=== PATIENT | female | born 1985 | race Caucasian/White ===

== ENCOUNTER 2018-12-02 09:42 | Inpatient (IN) | payer MEDICAID, OTHER ==
--- NOTE | 2018-12-02 10:42 | ED ---
Psych HPI - General Source: patient, police, EMS, RN notes reviewed Mode of arrival: EMS Limitations: no limitations <Sebastián Daniel - Last Filed: 12/02/18 14:29> <Ron Tobar - Last Filed: 12/02/18 14:37> - General Chief Complaint: Psychiatric Symptoms Stated Complaint: mental health Time Seen by Provider: 12/02/18 09:50 - History of Present Illness Initial Comments: This is a 33-year-old female presents emergency Department with police and EMS for psychiatric evaluation. Patient reports that she has been stalked and states that people are after and she is trying to get away. Patient is found to be very paranoid and delusional. Patient reportedly was crawling an addict, went to a neighbor's house and locked herself in the room and jumped out the window into a tree climbing down. Patient complains of mild right hip pain, left foot pain. She denies any head injury no loss conscious. Police and EMS states that she her behavior is very irrational. (Sebastián Daniel) - Related Data Home Medications Medication Instructions Recorded Confirmed Acetaminophen Tab [Tylenol] 500 mg PO DAILY 12/02/18 12/02/18 Ibuprofen [Advil] 200 mg PO DAILY PRN 12/02/18 12/02/18 Loratadine [Claritin] 10 mg PO DAILY 12/02/18 12/02/18 Allergies Allergy/AdvReac Type Severity Reaction Status Date / Time iodine Allergy Unknown Verified 12/02/18 10:33 latex Allergy Unknown Verified 12/02/18 10:33 minocycline Allergy Unknown Verified 12/02/18 10:33 polymyxin B [From Polytrim] Allergy Unknown Verified 12/02/18 10:33 shellfish derived [Shellfish] Allergy Unknown Verified 12/02/18 10:33 [place] Seed Allergy Unknown Verified 12/02/18 10:33 trimethoprim [From Polytrim] Allergy Unknown Verified 12/02/18 10:33 Review of Systems ROS Other: All systems not noted in ROS Statement are negative. <Sebastián Daniel - Last Filed: 12/02/18 14:29> ROS Other: All systems not noted in ROS Statement are negative. <Ron Tobar - Last Filed: 12/02/18 14:37> ROS Statement: Those systems with pertinent positive or pertinent negative responses have been documented in the HPI. Past Medical History Past Medical History: No Reported History, Unable to Obtain History of Any Multi-Drug Resistant Organisms: None Reported Past Surgical History: Unable to Obtain Smoking Status: Never smoker Past Alcohol Use History: None Reported Past Drug Use History: None Reported <Sebastián Daniel - Last Filed: 12/02/18 14:29> General Exam Limitations: no limitations General appearance: alert, in no apparent distress Head exam: Present: atraumatic, normocephalic, normal inspection Eye exam: Present: normal appearance, PERRL, EOMI. Absent: scleral icterus, conjunctival injection, periorbital swelling ENT exam: Present: normal exam, normal oropharynx, mucous membranes moist, TM's normal bilaterally Neck exam: Present: normal inspection, full ROM. Absent: tenderness, meningismus, lymphadenopathy Respiratory exam: Present: normal lung sounds bilaterally. Absent: respiratory distress, wheezes, rales, rhonchi, stridor Cardiovascular Exam: Present: regular rate, normal rhythm, normal heart sounds. Absent: systolic murmur, diastolic murmur, rubs, gallop, clicks GI/Abdominal exam: Present: soft, normal bowel sounds. Absent: distended, tenderness, guarding, rebound, rigid Extremities exam: Present: other (Abrasions noted of the right hand and lower extremities with no tenderness to the upper extremities, left foot there is diffuse tenderness tenderness the right hip with no shortening or rotation obvious deformities) Back exam: Present: full ROM. Absent: tenderness Neurological exam: Present: alert, oriented X3, CN II-XII intact. Absent: motor sensory deficit Psychiatric exam: Present: anxious Skin exam: Present: warm, dry, intact, normal color. Absent: rash <Sebastián Daniel - Last Filed: 12/02/18 14:29> Course <Ron Tobar - Last Filed: 12/02/18 14:37> Vital Signs 12/02/18 09:50 Temperature 97.8 F Pulse Rate 78 Respiratory 18 Rate Blood Pressure 133/90 O2 Sat by Pulse 98 Oximetry - Reevaluation(s) Reevaluation #1: 12/02/18 14:31 I did personally evaluate patient case a clinical certification was filled out by me. Patient be admitted for inpatient treatment (Ron Tobar) Medical Decision Making <Sebastián Daniel - Last Filed: 12/02/18 14:29> - Medical Decision Making 33-year-old female presented for psychiatric evaluation. Patient has delusional, paranoid than acute psychosis. Patient will be admitted. Patient was given Geodon secondary to her behavior. Patient is petition and had clinical CERT done (Sebastián Daniel) - Lab Data Lab Results 12/02/18 12/02/18 Range/Units 11:52 12:00 Urine Color Yellow Urine Appearance Clear (Clear) Urine pH 6.5 (5.0-8.0) Ur Specific [place] 1.009 (1.001-1.035) Urine Protein 1+ H (Negative) Urine Glucose (UA) Negative (Negative) Urine Ketones 1+ H (Negative) Urine Blood Negative (Negative) Urine Nitrite Negative (Negative) Urine Bilirubin Negative (Negative) Urine Urobilinogen <2.0 (<2.0) mg/dL Ur Leukocyte Esterase Negative (Negative) Urine RBC 1 (0-5) /hpf Urine WBC 1 (0-5) /hpf Ur Squamous Epith Cells <1 (0-4) /hpf Urine Bacteria Rare H (None) /hpf Urine Mucus Rare H (None) /hpf Urine HCG, Qual Not Detected (Not Detectd) Urine Opiates Screen Not Detected (NotDetected) Ur Oxycodone Screen Not Detected (NotDetected) Urine Methadone Screen Not Detected (NotDetected) Ur Propoxyphene Screen Not Detected (NotDetected) Ur Barbiturates Screen Not Detected (NotDetected) U Tricyclic Antidepress Not Detected (NotDetected) Ur Phencyclidine Scrn Not Detected (NotDetected) Ur Amphetamines Screen Not Detected (NotDetected) U Methamphetamines Scrn Not Detected (NotDetected) U Benzodiazepines Scrn Not Detected (NotDetected) Urine Cocaine Screen Not Detected (NotDetected) U Marijuana (THC) Screen Not Detected (NotDetected) Disposition <Sebastián Daniel - Last Filed: 12/02/18 14:29> <Ron Tobar - Last Filed: 12/02/18 14:37> Clinical Impression: Acute psychosis, Paranoid Disposition: TRANSFER TO PSYCH HOSP/UNIT Condition: Stable Referrals: Miriam Esquivel MD [Primary Care Provider] - 1-2 days
--- NOTE | 2018-12-02 10:49 | XR ---
EXAMINATION TYPE: XR pelvis AP view , ONE VIEW DATE OF EXAM ORDERED: 12/02/2018 HISTORY: Pain. COMPARISON: None. FINDINGS: Osseous structures about the pelvis are normal. There is partial sacralization of the L5 v ertebral body. No fracture or dislocation is seen. Both hip joints are maintained. IMPRESSION: NO ACUTE OSSEOUS LESION.
--- NOTE | 2018-12-02 10:49 | XR ---
EXAMINATION TYPE: XR lumbar spine 2 or 3V , 3 VIEWS DATE OF EXAM ORDERED: 12/02/2018 HISTORY: Pain. COMPARISON: None. FINDINGS: There is a mild levoscoliosis of the thoracolumbar junction. This may, in part, BE seconda ry to positioning. Vertebral body height and alignment are maintained. There is no significant evidence of spondylolysis or spondylolisthesis. The pedicles are intact. IMPRESSION: NO ACUTE OSSEOUS LESION.
--- NOTE | 2018-12-02 10:51 | XR ---
EXAMINATION TYPE: XR foot complete LT , 3 VIEWS DATE OF EXAM ORDERED: 12/02/2018 HISTORY: Pain. COMPARISON: None. FINDINGS: There is sclerosis along the medial aspect of the distal phalanx of the great toe. This is of questionable etiology. No fracture, dislocation or ankle joint effusion is seen. IMPRESSION: 1. NO ACUTE OSSEOUS LESION. 2. SCLEROSIS ALONG THE MEDIAL ASPECT OF THE DISTAL PHALANX OF THE LEFT GREAT TOE MAY REFLECT A PROMIN ENT BONE IS[place].
[2018-12-02] MEDS ORDERED: ZIPRASIDONE 20 MG VIAL IM STA (12:17)
[2018-12-02 12:19] LABS: Amphetamine Screen,Urine Not Detected (NotDetected); Barbiturate Screen,Urine Not Detected (NotDetected); Benzodiazepines Screen,Urine Not Detected (NotDetected); Cocaine Screen,Urine Not Detected (NotDetected); Methadone Screen, Urine Not Detected (NotDetected); Opiate Screen,Urine Not Detected (NotDetected); Oxycodone Screen, Urine Not Detected (NotDetected); Phencyclidine Screen,Urine Not Detected (NotDetected); Tricyclic Antidepressant,Urine Not Detected (NotDetected); Urn Cannabinoid Scrn Not Detected (NotDetected)
[2018-12-02 12:20] LABS: Appearance,Urine Clear (Clear); Bacteria,Urine Rare /hpf; Bilirubin,Urine Negative (Negative); Blood,Urine Negative (Negative); Color,Urine Yellow; Glucose,Urine (UA) Negative (Negative); Ketones,Urine 1+ (Negative); Leukocyte Esterase,Urine Negative (Negative); Mucus,Urine Rare /hpf; Nitrite,Urine Negative (Negative); PH, Urine 6.5 (5.0-8.0); Protein,Urine 1+ (Negative); RBC,Urine 1 /hpf (0-5); Specific Gravity,Urine 1.009 (1.001-1.035); Squamous Epithelial Cell,Urine <1 /hpf (0-4); Urobilinogen,Urine <2.0 mg/dL (<2.0); WBC,Urine 1 /hpf (0-5)
[2018-12-02] MEDS ORDERED: MAGNESIUM HYDROXIDE 2,400 MG/10 ML CUP PO PRN (15:35)
[2018-12-02] MEDS ORDERED: MAG HYDROX/AL HYDROX/SIMETH 30 ML CUP PO PRN (15:35)
[2018-12-02] MEDS ORDERED: ZIPRASIDONE 20 MG VIAL IM PRN (15:52)
--- NOTE | 2018-12-02 16:30 | P.CONS ---
History of Present Illness - Reason for Consult Consult date: 12/02/18 - History of Present Illness Patient is a 33-year-old female known PMH who presented to the ED under police custody for psychiatric evaluation. The patient had apparently been acting strangely and had been paranoid. She had reportedly broke into someone's house and had barricaded herself in their attic. She had been broke out of the attic via a window and fell down a nearby tree. The patient was concerned that there were groups of people stalking her. The patient was seen and examined at the mental health unit. She repeatedly mentioned being concern for safety due to unknown people attempting to stock. She also endorsed left foot and right hip pain due to her fall from the tree. She however denied any head trauma or loss of consciousness. She further denied any pain in the chest, shortness of breath, nausea, vomiting, fever, chills, or abdominal pain. She endorsed a long-standing history of exercise-induced asthma for which she uses an albuterol inhaler as needed. She otherwise denied any additional conditions or taking any additional medications. The patient underwent an extensive evaluation in the ED with a left foot x-ray which revealed no fracture or dislocation. A lumbar spinal x-ray was unremarkable. A pelvic x-ray also revealed no fracture or dislocation. Laboratory evaluation is currently pending with U tox negative. Review of Systems Pertinent positives and negatives as discussed in HPI, a complete review of systems was performed and all other systems are negative. Past Medical History Past Medical History: No Reported History, Unable to Obtain History of Any Multi-Drug Resistant Organisms: None Reported Past Surgical History: Unable to Obtain Smoking Status: Never smoker Past Alcohol Use History: None Reported Past Drug Use History: None Reported Medications and Allergies Home Medications Medication Instructions Recorded Confirmed Type Acetaminophen Tab [Tylenol] 500 mg PO DAILY 12/02/18 12/02/18 History Ibuprofen [Advil] 200 mg PO DAILY PRN 12/02/18 12/02/18 History Loratadine [Claritin] 10 mg PO DAILY 12/02/18 12/02/18 History Allergies Allergy/AdvReac Type Severity Reaction Status Date / Time iodine Allergy Unknown Verified 12/02/18 10:33 latex Allergy Unknown Verified 12/02/18 10:33 minocycline Allergy Unknown Verified 12/02/18 10:33 polymyxin B [From Polytrim] Allergy Unknown Verified 12/02/18 10:33 shellfish derived [Shellfish] Allergy Unknown Verified 12/02/18 10:33 [place] Seed Allergy Unknown Verified 12/02/18 10:33 trimethoprim [From Polytrim] Allergy Unknown Verified 12/02/18 10:33 Physical Exam Vitals: Vital Signs Temp Pulse Pulse Resp BP BP Pulse Ox 12/02/18 16:12 98.0 F 72 16 132/78 100 12/02/18 09:50 97.8 F 78 18 133/90 98 Intake and Output 12/02/18 12/02/18 12/02/18 06:59 14:59 22:59 Other: Weight 65.771 kg General: non toxic, no distress, appears at stated age, normal weight Derm: Bruises on her bilateral knees and fingers, bruising of her left foot and ankle, warm, dry Head: atraumatic, normocephalic, symmetric Eyes: EOMI, no lid lag, anicteric sclera, pupils equal round reactive to light ENT: Nose and ears atraumatic, no thrush, no pharyngeal erythema Neck: No thyromegaly, no cervical lymphadenopathy, trachea midline, supple Mouth: no lip lesion, mucus membranes moist Cardiovascular: S1S2 reg, no murmur, positive posterior tibial pulse bilateral, no edema, capillary refill less than 2 seconds Lungs: CTA bilateral, no rhonchi, no rales , no accessory muscle use Abdominal: soft, nontender to palpation, no guarding, no appreciable organomegaly, normal bowel sounds Ext: no gross muscle atrophy, muscle strength 5 out of 5 in all 4 extremities grossly, no contractures, Neuro: CN II-XI grossly intact, light touch intact all 4 extremities, finger to nose within normal limits, Psych: Alert, oriented, paranoid Results Labs: Abnormal Lab Results - Last 24 Hours (Table) 12/02/18 Range/Units 11:52 Urine Protein 1+ H (Negative) Urine Ketones 1+ H (Negative) Urine Bacteria Rare H (None) /hpf Urine Mucus Rare H (None) /hpf Assessment and Plan Plan: Psychosis -As per psychiatry Left foot and right hip pain -Likely secondary to falls -X-rays reviewed Thank you for allowing us to participate in the care of this patient. We will follow peripherally. Do not hesitate to contact us with questions. Someone can be reached from the [facility] hospitalist group at all hours of the day at [phone].
[2018-12-03] MEDS: LORazepam 1 MG TAB PO PRN (00:01)
[2018-12-03] MEDS: HALOPERIDOL LACTATE 5 MG/ML 1 ML VIAL IM PRN (01:09)
[2018-12-03] MEDS: LORazepam 2 MG/ML INJ IM PRN (01:09)
--- NOTE | 2018-12-03 07:50 | P.HP ---
Psychiatric H&P - . History & Physical: Allergies Allergy/AdvReac Type Severity Reaction Status Date / Time iodine Allergy Unknown Verified 12/02/18 10:33 latex Allergy Unknown Verified 12/02/18 10:33 minocycline Allergy Unknown Verified 12/02/18 10:33 polymyxin B [From Polytrim] Allergy Unknown Verified 12/02/18 10:33 shellfish derived [Shellfish] Allergy Unknown Verified 12/02/18 10:33 [place] Seed Allergy Unknown Verified 12/02/18 10:33 trimethoprim [From Polytrim] Allergy Unknown Verified 12/02/18 10:33 Vital Signs Temp 98.0 F 12/02/18 16:12 Pulse 72 12/02/18 16:12 Resp 16 12/02/18 16:12 BP 132/78 12/02/18 16:12 Pulse Ox 100 12/02/18 16:12 Intake & Output 12/02/18 12/03/18 12/03/18 18:59 06:59 18:59 Weight 65.771 kg Laboratory Last Values Urine Color Yellow 12/02/18 11:52 Urine Appearance Clear (Clear) 12/02/18 11:52 Urine pH 6.5 (5.0-8.0) 12/02/18 11:52 Ur Specific [place] 1.009 (1.001-1.035) 12/02/18 11:52 Urine Protein 1+ (Negative) H 12/02/18 11:52 Urine Glucose (UA) Negative (Negative) 12/02/18 11:52 Urine Ketones 1+ (Negative) H 12/02/18 11:52 Urine Blood Negative (Negative) 12/02/18 11:52 Urine Nitrite Negative (Negative) 12/02/18 11:52 Urine Bilirubin Negative (Negative) 12/02/18 11:52 Urine Urobilinogen <2.0 mg/dL (<2.0) 12/02/18 11:52 Ur Leukocyte Esterase Negative (Negative) 12/02/18 11:52 Urine RBC 1 /hpf (0-5) 12/02/18 11:52 Urine WBC 1 /hpf (0-5) 12/02/18 11:52 Ur Squamous Epith Cells <1 /hpf (0-4) 12/02/18 11:52 Urine Bacteria Rare /hpf (None) H 12/02/18 11:52 Urine Mucus Rare /hpf (None) H 12/02/18 11:52 Urine HCG, Qual Not Detected (Not Detectd) 12/02/18 12:00 Urine Opiates Screen Not Detected (NotDetected) 12/02/18 11:52 Ur Oxycodone Screen Not Detected (NotDetected) 12/02/18 11:52 Urine Methadone Screen Not Detected (NotDetected) 12/02/18 11:52 Ur Propoxyphene Screen Not Detected (NotDetected) 12/02/18 11:52 Ur Barbiturates Screen Not Detected (NotDetected) 12/02/18 11:52 U Tricyclic Antidepress Not Detected (NotDetected) 12/02/18 11:52 Ur Phencyclidine Scrn Not Detected (NotDetected) 12/02/18 11:52 Ur Amphetamines Screen Not Detected (NotDetected) 12/02/18 11:52 U Methamphetamines Scrn Not Detected (NotDetected) 12/02/18 11:52 U Benzodiazepines Scrn Not Detected (NotDetected) 12/02/18 11:52 Urine Cocaine Screen Not Detected (NotDetected) 12/02/18 11:52 U Marijuana (THC) Screen Not Detected (NotDetected) 12/02/18 11:52 12/03/18 07:39 IDENTIFYING DATA: This patient is a 33-year-old single female who was admitted to the mental health unit with acute symptoms of psychosis. HPI: The patient presents with a petition completed by a police academy instructor stating "everyone is out to kill her. Someone is chasing her because her grandpa killed Hitler and entered a home and jumped out a second story window." The patient was found in her room she has a one-to-one sitter in place as she has continually tried to elope from the mental health unit. She describes a variety of delusional thoughts. She states that she is being stalked by a man named Lyle Stockton. She claims that he is an older man was a billionaire and is trying to kill her. She states that her grandparents killed Hua and Lyle Stockton wants revenge because Hua was his grandfather. She states that he has hired a group of individuals to stalk her. She claims that he has put chips in her head and in her ears. As a result Bill can directly communicate with her and in a nonstop fashion tells her he will kill her. She states that they are using directed energy weapons against her while she sleeps. She describes this weapon is heating up the bed or heating the wall so that she is uncomfortable the entire time. She reports that she has called the police and the FBI numerous times to report this. She also states that he is involved in a methamphetamine drug ring. She indicates that she has had these symptoms for approximately 4 years. She states her sleep and appetite have been poor energy levels normal she endorses no crying spells. She feels depressed because of the situation she is in she has resultant anxiety. She reports no suicidal ideation intent or plan she states she is quite fearful of . She reports no homicidal ideation intent or plan. She endorses no visual hallucinations. She indicates that she feels unsafe everywhere. She states that she feels traumatized that she has received injectable medication. She received an injection of Geodon last evening in the ER and she received an injection of Haldol at approximately 1 AM this morning. PAST PSYCHIATRIC HISTORY: He reports no prior inpatient psychiatric care, no history of suicide attempts, no history of outpatient psychiatric care. She reports she's been on no psychotropic medications in the past and she will never take them. PMH: Recent fall details unknown ALLERGIES: Iodine, minocycline, polymyxin, Bactrim MEDICATIONS: None CHEMICAL DEPENDENCY HISTORY: Ports using alcohol once a year she reports no use of marijuana or illicit drugs. She states she's never been placed in residential treatment for chemical dependency FAMILY PSYCHIATRIC HISTORY: She states her mother and father known to have depression and anxiety, no suicides in the family FAMILY CHEMICAL DEPENDENCY HISTORY: None reported SOCIAL HISTORY: The patient is 33 years old she is single she has no children she resides with her mother. She states overall the relationship she has with her mother is good. 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 She graduated the [employer] with a degree in [place] she was accepted to medical school at [place] it is uncertain how far she participated in that curriculum she has 2 brothers one sister. No reported history of arrests or other legal issues. No reported history of abuse other than information she provides is part of her psychosis. MENTAL STATUS EXAM: The patient is a tall thin female appearing her stated age. She is dressed in hospital gowns and is covered with a hospital sheet and blanket. She has a disheveled appearance hygiene is adequate. She is tired appearing but not lethargic. She states that she is very fearful and overwhelmed. She describes auditory hallucinations and describes acute paranoid persecutory thoughts. Her symptoms of psychosis impair her normal psychosocial functioning. She is reporting no suicidal or homicidal ideation. She demonstrates some disorganization of thought process at times but can answer questions in a linear fashion at other times. She demonstrates no verbal or physical aggressiveness. Insight and judgment are poor. She is delusional at this time is trying to escape the mental health unit and is refusing medication. She is oriented to person place the date as December 02. She is able to easily name the days of the week backwards. She demonstrated no physical aggressiveness during our session. She demonstrates no involuntary repetitive movements. STRENGTHS/WEAKNESSES: Strengths: Housing support from family weaknesses acute symptoms of psychosis INTELLECTUAL FUNCTIONING: Above average IMPRESSIONS: [] 1. Psychosis unspecified, rule out schizophrenia PLAN: The patient has been admitted to the mental health unit on a petition and clinical certificate. She clearly is acutely psychotic experiencing paranoid and persecutory delusions. Several times she has tried to elope from the mental health unit and she informs me that she will never taken medication. Because of her acute dysfunction and lack of insight I have completed a second clinical certificate. She has been seen by internal medicine for routine history and physical exam. Social work will meet with the patient to complete a psychosoc ial assessment. We will monitor her for safety. Encourage her to participate in the therapeutic milieu. We will watch her by mouth intake. We will involve family in treatment and discharge planning as she will allow. For now we have a Haldol when necessary available for acute agitation/psychosis.
[2018-12-03] MEDS: LORATADINE 10 MG TAB PO SCH (09:45)
[2018-12-03 09:59] LABS: ALT 35 U/L (9-52); AST 45 U/L (14-36); African American GFR (CKD) >90 (>60 ml/min/1.73 sqM); Albumin 4.2 g/dL (3.5-5.0); Alkaline Phosphatase 38 U/L (38-126); Anion Gap 8 mmol/L; Basophils % (A) 0 %; Blood Urea Nitrogen 5 mg/dL (7-17); Calcium 9.3 mg/dL (8.4-10.2); Carbon Dioxide 27 mmol/L (22-30); Chloride 102 mmol/L (98-107); Cholesterol 140 mg/dL (<200); Eosinophils % (A) 0 %; Glucose 113 mg/dL (74-99); HCT 39.4 % (34.0-46.0); HDL Cholesterol 53 mg/dL (40-60); HGB 13.2 gm/dL (11.4-16.0); LDL Cholesterol,Calculated 77 mg/dL (0-99); Lymphocytes # (A) 0.6 k/uL (1.0-4.8); Lymphocytes % (A) 6 %; MCH 30.3 pg (25.0-35.0); MCHC 33.7 g/dL (31.0-37.0); MCV 89.9 fL (80.0-100.0); Mean Platelet Volume 7.6; Monocytes # (A) 0.9 k/uL (0-1.0); Monocytes % (A) 9 %; Neutrophils # (A) 8.2 k/uL (1.3-7.7); Neutrophils % (A) 83 %; Platelet Count 197 k/uL (150-450); Potassium 3.9 mmol/L (3.5-5.1); RBC 4.38 m/uL (3.80-5.40); RDW 13.7 % (11.5-15.5); Sodium 137 mmol/L (137-145); Total Bilirubin 1.2 mg/dL (0.2-1.3); Total Protein 6.7 g/dL (6.3-8.2); Triglycerides 51 mg/dL (<150)
[2018-12-03 10:33] LABS: Glucose,Whole Blood 108 mg/dL (75-99)
[2018-12-03 17:33] LABS: Appearance,Urine Clear (Clear); Bacteria,Urine Rare /hpf; Bilirubin,Urine Negative (Negative); Blood,Urine Trace (Negative); Color,Urine Light Yellow; Glucose,Urine (UA) Negative (Negative); Ketones,Urine Negative (Negative); Leukocyte Esterase,Urine Negative (Negative); Mucus,Urine Rare /hpf; Nitrite,Urine Negative (Negative); PH, Urine 6.5 (5.0-8.0); Protein,Urine Negative (Negative); RBC,Urine 1 /hpf (0-5); Specific Gravity,Urine 1.003 (1.001-1.035); Urobilinogen,Urine <2.0 mg/dL (<2.0); WBC,Urine <1 /hpf (0-5)
[2018-12-04] MEDS: ACETAMINOPHEN TAB 325 MG TAB PO PRN (08:22)
[2018-12-04] MEDS: LORATADINE 10 MG TAB PO SCH (08:48)
[2018-12-04 09:57] LABS: Urine Alcohol Negative (Negative); Urine Barbiturate Negative (Negative); Urine Cocaine Negative (Negative); Urine Methadone Negative (Negative); Urine Opiates Negative (Negative); Urine Phencyclidine Negative (Negative)
[2018-12-04] MEDS ORDERED: IBUPROFEN 600 MG TAB PO PRN (10:18)
[2018-12-04 10:50] LABS: Hemoglobin A1C 5.2 % (4.0-6.0)
--- NOTE | 2018-12-04 11:22 | P.PN ---
Progress Note - Text Interval history: The patient is found sleeping in the general hallway sleeping on the floor covered with a blanket. She had moved a chair in front of her. She states that she was sleeping there as she felt unsafe in her room and she wanted to be in a general area underneath a camera. She reluctantly follows me to a conference room to speak. After asking her a few questions she insisted that I get a specific female nurse to sit with us. After doing so she only tolerated the interview for a few more minutes. She continues to state that she is being followed and is in danger. She states that contracts are being put out to have her murdered. She states before she came in she fell off of the latter trying to escape danger. The x-ray reports of her foot back and pelvis were reviewed and those were negative for any acute process. She has been seen by internal medicine as well. She continues to refuse the use of any psychotropic medication orally. An attempt was made to describe the legal process that will ensue but she was not cooperative with that discussion. It appears she did receive a Haldol and Ativan injection earlier this morning. Mental status exam: The patient is a tall thin female appearing her stated age. Hygiene and grooming are impaired. She is dressed in her own clothing she is wearing a hospital blanket over top. Eye contact is intermittent. She spontaneously describes several delusional thoughts that are paranoid and persecutory in nature. During the session she indicates she does not want me involved in her care any longer. She demonstrates poor insight and judgment. She has a distraught affect throughout the session. She demonstrates no verbal or physical aggressiveness. She appears to have some psychomotor slowing which is likely due to the Haldol injection she received. She reports no thoughts of wanting to hurt herself or others. Plan: The patient presents with acute symptoms of psychosis which are unchanged. She is refusing antipsychotic medication. We will await the results of the deferral conference and possibly court hearing if necessary. Vital signs reviewed. We will monitor her by mouth intake. We will try to provide reality orientation when possible. She has received some Haldol injections at this point when she becomes more agitated so perhaps this will help reduce some of her psychosis.
[2018-12-04] MEDS: HALOPERIDOL LACTATE 5 MG/ML 1 ML VIAL IM PRN (15:27)
[2018-12-04] MEDS: LORazepam 2 MG/ML INJ IM PRN (15:27)
--- NOTE | 2018-12-04 17:13 | CT ---
EXAMINATION TYPE: CT brain aidee garner con DATE OF EXAM: 12/04/2018 COMPARISON: None HISTORY: Possible fall from attic of house. CT DLP: 1282.3 mGycm Automated exposure control for dose reduction was used. TECHNIQUE: CT scan of the head and cervical spine are performed without contrast. FINDINGS: There is no acute intracranial hemorrhage, mass effect, or midline shift identified. The ventricles and sulci are within normal limits in size. The globes are intact and the visualized sin uses are clear. Cervical spine is visualized in its entirety from C1 through upper thoracic levels and demonstrates s atisfactory alignment without evidence of acute fracture or dislocation. Prevertebral soft tissue ap pears within normal limits. The C1-C2 articulation is unremarkable. IMPRESSION: 1. There is no acute fracture or dislocation evident in the cervical spine. 2. No acute intracranial hemorrhage, mass effect, or midline shift is seen.
[2018-12-05] MEDS: ACETAMINOPHEN TAB 325 MG TAB PO PRN ×3 (07:52→17:49)
[2018-12-05] MEDS: LORATADINE 10 MG TAB PO SCH (08:48)
--- NOTE | 2018-12-05 10:11 | P.PN ---
Progress Note - Text Interval history: The patient is found on the hallway floor resting. She follows me to an interview room. Again she requested a female nurse be present during our interaction. She indicates she wants a transferred to [facility] as that hospitals closer to her primary care physician. She continues to feel that she is not being appropriately evaluated. She now has undergone an x-ray of her foot her pelvis and lumbar back and most recently a computed tomography scan of her brain and neck. All of these imaging studies revealed no acute process. This information was shared with the patient. She continues to describe symptoms of acute paranoia and persecution. She feels that she is in danger. The patient did sign a release of information I did speak with the patient's mother Ariadna. Her mother states that the patient did have an episode in her 20s where she appeared manic after taking Celexa. She states over the last 2 years she has been more fearful. She has struggle with anxiety to the point of not maintaining full-time employment. Her mother recognizes that the patient has had some paranoid thoughts over the recent past. They support her hospitalization and receiving medication treatment. She had questions regarding the court process which were addressed. The patient tolerated the interview only for a few moments. She got up and left the room after stating several times she wanted to be transferred. She did receive an injection yesterday prior to going for her head CT. Mental status exam: The patient is a thin female appearing her stated age. She is dressed in her own clothing she has a disheveled appearance. Hygiene is impaired. She was found lying on the floor in the hallway underneath the security camera she was laying on sheets. She has a chair next to her and she lays on the ground. Eye contact is poor. She has some spontaneous speech. She reports ongoing paranoid and persecutory thoughts. She continues to feel that she is being stalked and is in danger. She continues to feel that Lyle Flores that is trying to murder her. Insight and judgment are poor. She will not tolerate a conversation involving the use of oral antipsychotic medication. She demonstrated no verbal or physical aggressiveness. Plan: Ongoing symptoms of acute psychosis. The patient is refusing an oral antipsychotic medication. She has a hearing scheduled this Tuesday morning. Assuming we obtain a treatment order we'll initiate antipsychotic medication. Vital signs reviewed.
[2018-12-05] MEDS ORDERED: BACITRACIN OINT 1 EACH PACKET TOPICAL ONE ×2 (12:21→18:51)
[2018-12-06] MEDS: LORATADINE 10 MG TAB PO SCH (08:38)
[2018-12-06] MEDS: ACETAMINOPHEN TAB 325 MG TAB PO PRN ×3 (08:39→17:25)
--- NOTE | 2018-12-06 11:14 | P.PN ---
Progress Note - Text Interval history: The patient's is found at the [facility]. She asked to meet with both myself and the other psychiatrist. She indicates she does not feel safe meeting with me even with female nursing staff present as we have been doing each day. She demands to change psychiatrists as she feels I'm inadequately addressing her needs. Efforts were made to have her sit in an interview room with female nursing staff present but she refused and walked away from the desk. Staff report that she is participating in group she continues to verbalize a psychotic thought content. She has been sleeping in the quiet room as she feels safer in there since there is a camera. I received a written communication from the patient's parents stating "dear or as immediate family of Sari Harris we support [facility] psychiatric team's request to continue treatment of her daughter beyond the 72 hour assessment period. We are concerned for her mental health safety and well-being following last weekends manic episode and 911 emergency call. Yes we have encouraged Sari to seek treatment over the past 2 years with limited success. An yes we are very concerned that she receives further mental health treatment to aid her recovery. Your actions and continued support are greatly appreciated." Mental status exam: The patient is a tall thin female appearing her stated age. She is dressed in her own clothing she has a disheveled appearance. She has intermittent eye contact affect is bland. She has spontaneous speech she is verbose. She is intrusive in conversation and does not receive input well. She indicates she is unsafe here on this mental health unit she feels unsafe with me. She describes a variety of paranoid and persecutory thoughts. Insight and judgment are poor. Continues to refuse any psychotropic medication to address her obvious symptoms of psychosis. She demonstrated no verbal or physical aggressiveness. Plan: The patient remains acutely psychotic. She requires antipsychotic medication however she is refusing that treatment. We are awaiting her hearing to obtain a treatment order. Vital signs reviewed. We will continue to monitor her for safety. We will provide reality orientation when possible.
[2018-12-06] MEDS: LORazepam 1 MG TAB PO PRN (21:23)
[2018-12-06] MEDS: HALOPERIDOL LACTATE 5 MG/ML 1 ML VIAL IM PRN (21:23)
[2018-12-07] MEDS: ACETAMINOPHEN TAB 325 MG TAB PO PRN ×3 (07:48→17:06)
[2018-12-07] MEDS: LORATADINE 10 MG TAB PO SCH (07:48)
[2018-12-07] MEDS ORDERED: BACITRACIN OINT 1 EACH PACKET TOPICAL ONE (10:07)
[2018-12-07] MEDS: BACITRACIN 500 UNIT/GM OINT 28.4 GM TUBE TOPICAL SCH ×2 (10:09→22:05)
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
[2018-12-08] MEDS: ACETAMINOPHEN TAB 325 MG TAB PO PRN ×3 (02:31→12:20)
--- NOTE | 2018-12-08 08:32 | P.PN ---
Progress Note - Text Interval history: The patient is found in the [facility]. She refuses to speak with me in an interview room with female nursing staff present. she continues to state "I will see you in court, I'm defending myself". She indicates that she slept last night however staff reported she slept 3 hours. Social work notes reviewed. The patient continues to make delusional statements to staff. She indicated that she felt food and water were poisoned here with sedatives. She states that she is calling the FBI to report us. She demands a transferred to [facility] to her primary care physician. Mental status exam: The patient is seated in [facility] underneath a security camera. She stressor own clothing hygiene grooming adequate. Speech is spontaneous fluent. She is uncooperative when asked to participate in an interview this morning even with female staff present. She refuses to answer any other questions than noted above. Insight and judgment remain poor. She is demonstrating no physical aggressiveness. She is demonstrating no involuntary repetitive movements. She is in no physical distress. She maintains a mildly irritable affect this morning during our brief interaction. Impression/plan: The patient remains acutely psychotic, she has a hearing this morning. If we are able to obtain a treatment order we will begin prescribing an oral antipsychotic. We will consider our choices but she would most likely benefit from 1 that has an injectable Depo form as she is likely to not comply w ith oral medication outside of the hospital. Vital signs reviewed. We will continue to provide reality orientation when possible.
[2018-12-08] MEDS ORDERED: ZIPRASIDONE 20 MG VIAL IM PRN (11:00)
[2018-12-08] MEDS: LORATADINE 10 MG TAB PO SCH (11:22)
[2018-12-08] MEDS: BACITRACIN 500 UNIT/GM OINT 28.4 GM TUBE TOPICAL SCH ×2 (11:22→21:07)
[2018-12-08] MEDS: ARIPiprazole 10 MG TAB PO SCH (11:23)
[2018-12-09] MEDS: BACITRACIN 500 UNIT/GM OINT 28.4 GM TUBE TOPICAL SCH ×2 (09:20→22:23)
[2018-12-09] MEDS: ARIPiprazole 10 MG TAB PO SCH (09:20)
[2018-12-09] MEDS: LORATADINE 10 MG TAB PO SCH (09:21)
--- NOTE | 2018-12-09 13:10 | P.PN ---
Progress Note - Text Progress Note Date: 12/09/18 Interval history: Patient is seen in cross coverage today. She reports that she deferred her court hearing yesterday. She did start Abilify yesterday and received another dose today. She does not seem to voice any adverse psychotropic medication side effects. She inquires regarding any interaction between Abilify and Claritin. She makes reference to having received 2 injections and felt pain after the injections, relays she wasn't able to walk and felt immobilized. She states that she is able to walk today and is attending some groups. Mental status exam: She is alert and cooperative with the interview. She is seen with female nursing staff present. She seems to describe feeling better, relays that she does still have some PTSD symptoms. She seems to deny any paranoid thoughts. She does not verbalize any hallucinations or thoughts of harm to self or others. There is no evidence of any agitation. Plan: Patient will be maintained on current psychotropic medication regimen. Monitor for medication compliance and monitor for any psychotropic medication side effects. Monitor ongoing response to treatment. To cover this patient through the weekend.
[2018-12-09] MEDS: ACETAMINOPHEN TAB 325 MG TAB PO PRN (18:44)
[2018-12-10] MEDS: BACITRACIN 500 UNIT/GM OINT 28.4 GM TUBE TOPICAL SCH ×2 (09:23→21:12)
[2018-12-10] MEDS: ARIPiprazole 10 MG TAB PO SCH (09:23)
[2018-12-10] MEDS: LORATADINE 10 MG TAB PO SCH (09:23)
[2018-12-10] MEDS: ACETAMINOPHEN TAB 325 MG TAB PO PRN ×2 (11:40→18:53)
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
[2018-12-11] MEDS: LORATADINE 10 MG TAB PO SCH (09:39)
[2018-12-11] MEDS: BACITRACIN 500 UNIT/GM OINT 28.4 GM TUBE TOPICAL SCH ×2 (09:39→21:33)
[2018-12-11] MEDS: ARIPiprazole 10 MG TAB PO SCH (09:39)
--- NOTE | 2018-12-11 14:46 | PN ---
PROGRESS NOTE DATE OF SERVICE: 12/11/2018 CHIEF COMPLAINT: The patient was delusional. She believed someone was chasing her and she jumped out of a second-story window. INTERVAL HISTORY: Patient continues to appear quite distressed. She expresses a lot of paranoid fears. She believes that she is unsafe around various staff. She has attended some groups though continues to make comments in groups of a delusional nature. She talked about feeling people were stalking her and that she needed witnesses because she was unsafe around certain staff. She continues to sleep in the quiet room so that she does not have to be in a room with another person. She chooses not to take her Claritin because she says it interacts with her Abilify. She has been taking her Abilify. She appears to tolerate her psychotropic medications. MENTAL STATUS: I saw the patient 3 different times on the unit. Each time, as soon as I came within proximity where she could see me, she immediately says that she will not talk to me and that she feels unsafe and that she would walk off to some other area in the unit. I did meet with her briefly in one of the group rooms, though the patient did not respond in any meaningful way. ASSESSMENT: I will continue the current diagnosis and treatment plan. I will increase Abilify to 15 mg twice a day. The patient continues to show significant paranoid delusions. I informed the patient regarding the change of medications. She stated "okay." She had no other comments related to her medications. I asked her if she had any difficulties or side effects with her medications and she said no. We will continue to focus on stabilization and discharge planning. MMODL / ASHAN: [id number] /
[2018-12-11] MEDS: LORazepam 2 MG/ML INJ IM PRN (20:12)
[2018-12-11] MEDS: ARIPiprazole 5 MG TAB PO SCH (21:32)
[2018-12-12] MEDS ORDERED: HALOPERIDOL 5 MG TAB PO PRN (09:55)
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
[2018-12-12] MEDS: BACITRACIN 500 UNIT/GM OINT 28.4 GM TUBE TOPICAL SCH ×3 (11:13→21:54)
[2018-12-12] MEDS: ARIPiprazole 5 MG TAB PO SCH ×2 (11:13→21:15)
[2018-12-12] MEDS: HALOPERIDOL 5 MG TAB PO SCH ×2 (11:14→21:15)
[2018-12-12] MEDS: LORATADINE 10 MG TAB PO SCH (11:14)
[2018-12-12] MEDS ORDERED: LORazepam 2 MG/ML INJ IM SCH (13:00)
[2018-12-12] MEDS ORDERED: LORazepam 2 MG/ML INJ IM PRN (13:54)
[2018-12-13] MEDS: ARIPiprazole 5 MG TAB PO SCH ×2 (00:05→11:24)
[2018-12-13] MEDS: BACITRACIN 500 UNIT/GM OINT 28.4 GM TUBE TOPICAL SCH ×2 (11:24→22:04)
[2018-12-13] MEDS: HALOPERIDOL 5 MG TAB PO SCH (11:24)
[2018-12-13] MEDS: LORATADINE 10 MG TAB PO SCH (11:24)
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
[2018-12-13 17:16] LABS: T4, Free (Free Thyroxine) 1.43 ng/dL (0.78-2.19)
[2018-12-13] MEDS ORDERED: HALOPERIDOL ORAL SOLN 10 MG/5 ML CUP PO SCH (21:00)
[2018-12-14] MEDS: BACITRACIN 500 UNIT/GM OINT 28.4 GM TUBE TOPICAL SCH ×2 (10:15→20:16)
[2018-12-14] MEDS: HALOPERIDOL ORAL SOLN 10 MG/5 ML CUP PO SCH ×3 (10:15→20:16)
[2018-12-14] MEDS: LORATADINE 10 MG TAB PO SCH (10:16)
[2018-12-14] MEDS ORDERED: BACITRACIN OINT 1 EACH PACKET TOPICAL ONE (15:54)
--- NOTE | 2018-12-14 22:34 | PN ---
PROGRESS NOTE DATE OF SERVICE: 12/14/2018 CHIEF COMPLAINT: The patient was delusional. She believed someone was chasing her and she jumped out of a second-story window. INTERVAL HISTORY: The patient has been doing fair. She had a quiet evening last night. She comes out on the unit. She wanders about. She will interact with some of her peers. She continues to express a lot of paranoid thinking and resists taking medication. She slept fairly well last night. Today she has been up. She comes out in the day area. She has been attending activities. She seems to be comfortable in activities and will generally engage fairly well. It is noted that she has had some inappropriate contact with patients, so there is a concern about monitoring her behavior in this regard. She has not had problems with agitation, though she can get distressed over what she feels is inappropriate treatment. She will talk about not needing to be in the hospital. She has poor insight regarding her condition. She has tacitly accepted medications. She has been requesting to change doctors to Dr. Rizvi. She apparently had a conversation with her father and was in agreement with taking medications as long as she could change doctors. I had extensive telephone contact with the patient's mother. She noted that she likely was showing a prodrome of symptoms over at least 2 years, if not longer. Mother states that the serious incident that precipitated her hospitalization, where she fell through the attic ceiling in her house, ran out of the house, swam [place] the [place], went into another person's house, ran upstairs and jumped out of a second-story window, was completely unpredictable, according to the mother. She says that she could not ever have imagined the patient would have done that. She notes that overall the patient has a very calm demeanor; she is friendly and gets along well with others, though she has had signs of increasing suspiciousness and paranoid thinking, probably at least for the last 2 years. I have discussed the diagnosis with the parents, namely first break schizophrenia, paranoid type. We have discussed at length the nature of the diagnosis, treatment interventions and issues regarding potential prognosis. Later in the day I had a meeting with the patient and her father. It was noteworthy that the patient seemed to be generally comfortable in the meeting, which was the first time she made any effort at talking productively with me. We set up a plan for her to be transferred to the service of Dr. Rizvi, with which Dr. Rizvi was in agreement. The patient understood that she would continue on Haldol at the current dose of 10 mg in the morning, 20 mg in the evening. The patient made statements that she would take her medications consistently. She appears to tolerate her psychotropic medication. MENTAL STATUS: Patient sat with some restlessness. She gave fair eye contact. She answered some questions appropriately. She was spontaneous and at times somewhat interactive. She had a blunted affect. She did seem to show some degree of suspiciousness. At times she made negative comments about her need to be in the hospital. Her mood was dysphoric. She continued with paranoid thinking. Cognition was clear. ASSESSMENT: I will continue the current diagnosis and treatment plan. The patient will be transferred to Dr. Rizvi. She will continue on Haldol 10 mg in the morning, 20 mg in the evening. She has a demand for hearing with her hearing scheduled for tomorrow morning at 9 a.m. I did make contact with the court and it was indicated that the hearing could not be changed or rescheduled for a later date. The scrap preparer's financial administrative assistant indicated that it was uncertain what the scrap preparer's decision might be in regard to court- ordered treatment. There is concern regarding that, which I have discussed with the family at length; namely, that it may have significant impact on her future, particularly in regard to career opportunities. GENESIS / LOLA: [id number] /
[2018-12-15] MEDS: HALOPERIDOL ORAL SOLN 10 MG/5 ML CUP PO SCH ×2 (08:10→21:04)
[2018-12-15] MEDS: LORATADINE 10 MG TAB PO SCH (08:11)
[2018-12-15] MEDS: BACITRACIN 500 UNIT/GM OINT 28.4 GM TUBE TOPICAL SCH ×2 (08:12→21:06)
[2018-12-15] MEDS ORDERED: HALOPERIDOL LACTATE 5 MG/ML 1 ML VIAL IM PRN ×2 (12:11)
--- NOTE | 2018-12-15 12:31 | P.PN ---
Progress Note - Text Progress Note Date: 12/15/18 Interval History: patient was seen this morning in group doing a puzzle and was agreeable to speak to proposal writer in the conference room. Patient appeared to be bradykinetic in her gait and movements as she walked to the conference room. Patient appeared to have a blunted affect and appeared to speak very slowly. She states that she is carrying around a folder full of different information and incidences on the unit that she has been recording and claims that she would like to file complaints against other people and staff for mistreatment and neglect. Patient states that she did go to court this morning and that a court order was issued for her and patient verbalizes understanding of this. Patient claims that she trusts proposal writer more than the other physicians and is glad to have a new doctor on her case. Vacuum Drier Operator assured patient that they will attempt to work on a plan to help her get better and be discharged back home. Patient continues to be somewhat paranoid and does not trust others. She denies any auditory or visual hallucinations at this time. She claims that her mood is "okay". She denies any depressive or manic symptoms at this time.. At this time patient denies any suicidal or homical ideations, intent or plan. Patient claims that she is now taking the Haldol however would like something to help her not feel so stiff. Mental Status Exam: General Appearance: Patient appears to be stated age is alert, directable yet continues to be suspicious of others. Patient's hygiene and grooming are gradually improving. Behavior: Patient is calmly seated without any agitated behavior. Speech: Patient's speech is fluent and nonpressured. Mood/Affect: Patient reports their mood is improving, affect is congruent and constricted. Suicidality/Homicidality: Patient denies having any suicidal or homicidal ideation intent or plan. Perceptions: Patient denies any auditory or visual hallucinations. Though content/process: patient is linear and goal oriented however continues to be paranoid and somewhat delusional. Memory and concentration: AOX3, grossly intact for the purposes of this session Judgment and insight: poor, improving Assessment schizophrenia Plan: -Patient continues to meet criteria for inpatient psychiatric admission for symptom stabilization and safety. Patient had her court hearing today and was issued a 60/180 treatment order. -Medications: we'll continue Haldol 10 mg twice a day liquid for psychosis. If patient refuses Haldol then she is to receive 10 mg IM. Spoke with patient about starting Cogentin 1 mg twice a day for EPS prophylaxis, patient verbally understood and agreed. -plan will be to give the long-acting Haldol decanoate injection once stabilized. -When necessary Haldol for agitation/aggression. -SW on board for discharge planning. will likely need another family meeting next week.
[2018-12-15] MEDS ORDERED: BENZTROPINE MESYLATE 0.5 MG TAB PO ONE (17:00)
[2018-12-15] MEDS: BENZTROPINE MESYLATE 1 MG TAB PO SCH (21:04)
[2018-12-16] MEDS: BACITRACIN 500 UNIT/GM OINT 28.4 GM TUBE TOPICAL SCH ×2 (08:31→20:18)
[2018-12-16] MEDS: BENZTROPINE MESYLATE 1 MG TAB PO SCH ×3 (08:34→20:18)
[2018-12-16] MEDS: HALOPERIDOL ORAL SOLN 10 MG/5 ML CUP PO SCH ×2 (08:34→20:18)
[2018-12-16] MEDS: LORATADINE 10 MG TAB PO SCH (08:34)
--- NOTE | 2018-12-16 14:18 | PN ---
PROGRESS NOTE DATE OF SERVICE: 12/16/2018. CHIEF COMPLAINT: The patient was delusional. She believes someone was chasing her and she jumped out of a second-story window. INTERVAL HISTORY: Patient has been doing fair. She had a quiet evening last night. She comes out in the day area. She wanders about. She slept fairly well last night. Today she has been up. She continues the same. She has attended groups and is described as "blunted, bright, attentive, compliant, low energy." When I talked to the patient, she declined to come into the physician office. She said she had no specific complaints or concerns today. She said that any issues she had she would address it with Dr. Pierre on Tuesday. She says that for the most part she tolerates her medications. MENTAL STATUS: Patient was in the [place]. She walks with a slow gait. There was almost some shuffling of gait. She gave fair eye contact. Psychomotor activity was slowed. She answered questions with brief responses. Her thoughts were clear. She did not make any tangential comments or seem to describe any specific paranoid thoughts. Her affect was blunted. Her mood reserved. It was difficult to say if she was distressed in any way. It is noted that she had slowed movements. She declined to be further assessed for possible extrapyramidal side effects. ASSESSMENT: I will continue the current diagnoses and treatment plan. The patient continues to take Haldol and Cogentin as her primary medications. We will continue to focus on stabilization and discharge planning. MMNATANAEL / ASHAN: [id number] /
[2018-12-17] MEDS: ACETAMINOPHEN TAB 325 MG TAB PO PRN ×4 (07:00→20:28)
[2018-12-17] MEDS: HALOPERIDOL ORAL SOLN 10 MG/5 ML CUP PO SCH ×2 (08:46→20:27)
[2018-12-17] MEDS: BENZTROPINE MESYLATE 1 MG TAB PO SCH ×3 (08:46→21:03)
[2018-12-17] MEDS: BACITRACIN 500 UNIT/GM OINT 28.4 GM TUBE TOPICAL SCH ×2 (09:59→20:27)
[2018-12-17] MEDS: LORATADINE 10 MG TAB PO SCH (09:59)
--- NOTE | 2018-12-17 19:59 | PN ---
PROGRESS NOTE DATE OF SERVICE: 12/17/2018. CHIEF COMPLAINT: The patient was delusional. She believes someone was chasing her and she jumped out of a second-story window. INTERVAL HISTORY: The patient has been doing fair. She still is quite withdrawn and apprehensive when it comes to interactions with staff. On the other hand, when she is in group activities with peers, she seems to do better. She only attended 1 group yesterday and was in a more quiet mood. She slept fairly well by the best I could tell. Today, she has been up. She missed the morning group though attended the next 2 groups. She seemed to be fairly positive in her interactions in group despite how she presents on the unit in the milieu. When I saw the patient, she was called down to the nursing station. She came down. She stood about 10 feet away and told me that she was doing okay and did not need to review anything more. I talked to the patient and did note for her that she may be missing the opportunity to be able to explore questions about her medications or other issues about her care. Still she declined to engage in any productive conversation. On the other hand, she did not withdrawal in a more dramatic manner as she had in my interactions with her up until now. She appears to tolerate her psychotropic medications fairly well, though she walks with a slow gait. When I asked her if the increase in Cogentin helps, she said yes. MENTAL STATUS EXAM: Patient walked slowly down the [place] with a shuffling gait. She gave fairly good eye contact. She said a few things spontaneously. Her thoughts were clear. She answered a few questions, though declined to engage anymore in conversation. Her affect was blunted. Her mood reserved. It was difficult to say how distressed she might be feeling. She continues to reveal some paranoid thinking. ASSESSMENT: I will continue the current diagnosis and treatment plan. I will continue psychotropic medications the same. I encouraged the patient to look at and assess her own progress and to consider approaching staff with any questions or concerns about her medications, her treatment or discharge planning. GENESIS / LOLA: [id number] /
[2018-12-18] MEDS: LORATADINE 10 MG TAB PO SCH (08:21)
[2018-12-18] MEDS: ACETAMINOPHEN TAB 325 MG TAB PO PRN ×2 (08:22→15:00)
[2018-12-18] MEDS: BENZTROPINE MESYLATE 1 MG TAB PO SCH ×3 (08:22→20:01)
[2018-12-18] MEDS: HALOPERIDOL ORAL SOLN 10 MG/5 ML CUP PO SCH (08:22)
[2018-12-18] MEDS: BACITRACIN 500 UNIT/GM OINT 28.4 GM TUBE TOPICAL SCH ×2 (08:23→21:17)
--- NOTE | 2018-12-18 11:51 | P.PN ---
Progress Note - Text Progress Note Date: 12/18/18 Interval History: Patient was seen in the hallways and was agreeable to speak to gag writer after co jeff out of group. Patient appeared to be having a shuffling gait and appeared to be stiff, with bratty kinetic movements. Patient had a blunt affect. Patient states that she continues to feel stiff and asked politely as to how she can feel better. Patient appears to be calmer and cooperative with the gag writer however continues to feel paranoid about others at times and states that she needs to go to her room to be away from people when she feels like that. She states that she has been attending groups and trying to participate as much as she can. Patient claims that the Cogentin has helped a little bit however patient continues to feel this way. Patient spoke about hearing the FBI using a new technology to communicate with her through [employer] called "[employer]" and states that this is a new technology developed by [employer]. Patient states that she continues to feel paranoid about a "white supremacist group" who is after her. She states that she is eating and sleeping well. At this time patient denies any suicidal or homical ideations, intent or plan. Patient admits to ongoing auditory hallucinations as described above. She denies any visual hallucinations and denies any paranoia or delusions. Patient admits to be complying with medication. Mental Status Exam: General Appearance: Patient appears to be stated age is alert, directable yet continues to be suspicious of others. Patient's hygiene and grooming are gradually improving. Patient appears to have a blunt appearance and appears to be rigid with movements and bradykinetic Behavior: Patient is calmly seated without any agitated behavior. Speech: Patient's speech is fluent and nonpressured. Mood/Affect: Patient reports their mood is improving, affect is congruent and constricted. Suicidality/Homicidality: Patient denies having any suicidal or homicidal ideation intent or plan. Perceptions: Patient denies any auditory or visual hallucinations. Though content/process: patient is linear and goal oriented however continues to be paranoid and somewhat delusional. Memory and concentration: AOX3, grossly intact for the purposes of this session Judgment and insight: poor, improving Assessment Schizophrenia Plan: -Patient continues to meet criteria for inpatient psychiatric admission for symptom stabilization and safety. Patient had her court hearing today and was issued a 60/180 treatment order. -Medications: At this time due to the profound extrapyramidal symptoms will decrease the dose of Haldol to 8 mg twice a day liquid for psychosis. If patient refuses Haldol then she is to receive 10 mg IM. Continue with Cogentin 1 mg 3 times a day for EPS prophylaxis, patient verbally understood and agreed. -Also discussed with patient the need to possibly switch to a second generation antipsychotic particularly Risperdal was discussed to prevent further extraparametal symptoms and better control of patient's psychiatric symptoms. -plan will be to give the long-acting injection once stabilized. -When necessary Haldol for agitation/aggression. -SW on board for discharge planning. will likely need another family meeting next week.
[2018-12-18] MEDS ORDERED: HALOPERIDOL ORAL SOLN 10 MG/5 ML CUP PO SCH ×2 (21:00)
--- NOTE | 2018-12-19 08:57 | P.PN ---
Progress Note - Text Progress Note Date: 12/19/18 Interval History: Patient was seen wandering the hallways this morning and appeared to have a br ight affect. Patient was agreeable to speak to editorial writer in the office had a bradykinetic gait which was mildly improved from yesterday. Patient states that she is feeling better and claims that she is happy that she has off haloperidol for now and feels that her muscles are able to move more. Patient claims that she is trying to go to groups and be more active in the milieu. Patient states that her mood is "good" and denies any depressive symptoms. She states that she slept well last night and has been eating okay. Discussed with patient about the need for a temporary washout period with medication due to EPS side effects and patient was agreeable to restart another medication Abilify soon. At this time patient denies any suicidal or homical ideations, intent or plan. Patient claims that her auditory hallucinations have "quieted down" and denies any visual hallucinations. Patient was less preoccupied with delusions today. Patient denies any side effects from the medications and has been compliant with meds. Mental Status Exam: General Appearance: Patient appears to be stated age is alert, directable yet continues to be suspicious of others. Patient's hygiene and grooming are gradually improving. Patient gait is mildly improved from yesterday and has a brighter affect today. Appears to be less rigid. Behavior: Patient is calmly seated without any agitated behavior. Speech: Patient's speech is fluent and nonpressured. Mood/Affect: Patient reports their mood is "good", affect is congruent Suicidality/Homicidality: Patient denies having any suicidal or homicidal idea tion intent or plan. Perceptions: Patient denies any auditory or visual hallucinations. Though content/process: patient is linear and goal oriented however is less paranoid today. Memory and concentration: AOX3, grossly intact for the purposes of this session Judgment and insight: poor, improving Assessment Schizophrenia Plan: -Patient continues to meet criteria for inpatient psychiatric admission for symptom stabilization and safety. Patient had her court hearing today and was issued a 60/180 treatment order. -Medications: At this time due to the extrapyramidal symptoms will continue ho lding off Haldol. Increased Cogentin to 2 times a day for EPS prophylaxis, patient verbally understood and agreed. Discussed with patient in great detail about the other options for antipsychotics and patient claims that she would like to give aripiprazole another chance and start off with a small dose. -plan will be to give the long-acting injection once stabilized. -When necessary Ativan for agitation/aggression. -SW on board for discharge planning. Materials Inspector to attempt to contact family and discuss plan. Patient agrees with this.
[2018-12-19] MEDS: BACITRACIN 500 UNIT/GM OINT 28.4 GM TUBE TOPICAL SCH ×2 (09:31→22:40)
[2018-12-19] MEDS: BENZTROPINE MESYLATE 1 MG TAB PO SCH ×2 (09:32→19:58)
[2018-12-19] MEDS: LORATADINE 10 MG TAB PO SCH (09:32)
[2018-12-20] MEDS: LORATADINE 10 MG TAB PO SCH (07:40)
[2018-12-20] MEDS: BENZTROPINE MESYLATE 1 MG TAB PO SCH ×2 (07:40→21:03)
[2018-12-20] MEDS: BACITRACIN 500 UNIT/GM OINT 28.4 GM TUBE TOPICAL SCH ×2 (07:41→21:04)
--- NOTE | 2018-12-20 10:21 | P.PN ---
Progress Note - Text Progress Note Date: 12/20/18 Interval History: Patient was seen in group this morning and was agreeable to speak to typewriter mechanic with one of the nurses present as a substation operator conversion in the conference room. Patient appeared to have improved gait and motor function, no tremor and an improved brighter affect. Patient states that she is learning a lot from the groups and is trying to participate. Patient claims that she is working primarily on "my safety" and continues to carry around a folder with multiple documents in it. Patient claims that she is a "quick metabolizer" of medications and claims that she experiences side effects a lot more than other people and thinks typewriter mechanic for helping her and listening to her complaints. She states that she slept well last night and that her voices have been quieter allowing her to sleep. She states that her energy is fair and has been attempting to do some yoga in the quiet room. At this time patient denies any suicidal or homical ideations, intent or plan. Patient continues to have paranoia about others on the unit including staff members and only trusts certain people. Patient claims to be compliant with the medications. Mental Status Exam: General Appearance: Patient appears to be stated age is alert, directable yet continues to be suspicious of others. Patient's hygiene and grooming are gradually improving. Patient gait is mildly improved from yesterday and has a brighter affect today. Appears to be less rigid. Behavior: Patient is calmly seated without any agitated behavior. Speech: Patient's speech is fluent and nonpressured. Mood/Affect: Patient reports their mood is "better", affect is congruent Suicidality/Homicidality: Patient denies having any suicidal or homicidal ideation intent or plan. Perceptions: Patient denies any auditory or visual hallucinations. Though content/process: patient is linear and goal oriented however is less paranoid today. Memory and concentration: AOX3, grossly intact for the purposes of this session Judgment and insight: poor, improving Assessment Schizophrenia Plan: -Patient continues to meet criteria for inpatient psychiatric admission for symptom stabilization and safety. Patient had her court hearing and was issued a 60/180 treatment order. -Medications: Continue with Cogentin to 2 times a day for EPS prophylaxis, patient verbally understood and agreed. Discussed with patient in great detail about the other options for antipsychotics and patient claims that she would like to be started on aripiprazole. Will start Abilify 2.5 mg daily with plan to increase as tolerated for psychosis. Plan will be to give the long-acting injection once stabilized. -When necessary Ativan for agitation/aggression. -SW on board for discharge planning. Varnish Blender to attempt to contact family once again and discuss this plan with them.
[2018-12-20] MEDS: ARIPiprazole 5 MG TAB PO SCH (10:26)
[2018-12-20] MEDS: ACETAMINOPHEN TAB 325 MG TAB PO PRN (14:49)
[2018-12-21] MEDS: ACETAMINOPHEN TAB 325 MG TAB PO PRN (02:16)
[2018-12-21] MEDS: ARIPiprazole 5 MG TAB PO SCH (08:00)
[2018-12-21] MEDS: LORATADINE 10 MG TAB PO SCH (08:00)
[2018-12-21] MEDS: BENZTROPINE MESYLATE 1 MG TAB PO SCH (08:00)
[2018-12-21] MEDS: BACITRACIN 500 UNIT/GM OINT 28.4 GM TUBE TOPICAL SCH ×2 (08:55→20:27)
--- NOTE | 2018-12-21 10:08 | P.PN ---
Progress Note - Text Progress Note Date: 12/21/18 Interval History: Patient was seen prior to going into group and was agreeable to speak to underwriter in the conference room with a nurse present as a campus aide. Patient appears to have improved gait, a brighter affect and is calm and cooperative with underwriter during the interview. Patient states that she is feeling more positive and claims that she is doing yoga and stretching in her quiet room. Patient claims that she is still trying to process through the trauma of being picked up by security guards and given forced when necessary medications for agitation in the past. Pr Specialist mentioned that she spoke with patient's mom yesterday over the phone and gave updates and shared the progress that patient has been making and claims that patient's mother is on board with the plan and will be coming to visit soon. Patient was happy to hear this and to continue on with current plan. Patient had questions about the medication and side effects and states that one of her leg was stiff yesterday before she slept and had some headaches however took Tylenol for them which improved. Patient claims her mood is improving and denies any anxiety at this time. She continues to claim that the voices that she was hearing have "calmed down". Patient continues to share her delusion about FBI agents tracking her and talking to her with a new technology. At this time patient denies any suicidal or homical ideations, intent or plan. Mental Status Exam: General Appearance: Patient appears to be stated age is alert, directable yet continues to be suspicious of others. Patient's hygiene and grooming are gradually improving. Patient gait is mildly improved from yesterday and has a brighter affect today. Appears to be less rigid. Behavior: Patient is calmly seated without any agitated behavior. Speech: Patient's speech is fluent and nonpressured. Mood/Affect: Patient reports their mood is "good", affect is congruent Suicidality/Homicidality: Patient denies having any suicidal or homicidal ideation intent or plan. Perceptions: Patient denies any auditory or visual hallucinations. Though content/process: patient is linear and goal oriented however continues to be paranoid. Memory and concentration: AOX3, grossly intact for the purposes of this session Judgment and insight: poor, improving Assessment Schizophrenia Plan: -Patient continues to meet criteria for inpatient psychiatric admission for symptom stabilization and safety. Patient had her court hearing and was issued a 60/180 treatment order. -Medications: Will discontinue Cogentin at this time as EPS is improving. Will increase Abilify to 5 mg daily with plan to increase as tolerated for psychosis. Plan will be to give the long-acting injection once stabilized. -When necessary Haldol and Ativan for agitation/aggression. -SW on board for discharge planning. Pr Specialist contacted mother by phone yesterday to give updates and answer questions about medications and progress and future plan with treatment.
[2018-12-22] MEDS: LORATADINE 10 MG TAB PO SCH (08:22)
[2018-12-22] MEDS: BACITRACIN 500 UNIT/GM OINT 28.4 GM TUBE TOPICAL SCH ×2 (08:22→22:03)
[2018-12-22] MEDS ORDERED: ARIPiprazole 5 MG TAB PO SCH (09:00)
--- NOTE | 2018-12-22 14:17 | P.PN ---
Progress Note - Text Progress Note Date: 12/22/18 Interval History: Patient was seen in the hallways and was agreeable to speak to read in the off ice. Patient appeared to have much improved gait and a brighter affect this morning. Patient states that she is continuing to do better and feels like she is taking part morning groups and learning to trust people. Patient continues to feel paranoid about others, certain people on the unit and listed off different staff members who were involved with holding her for a forced med hold which she describes as "traumatic". Patient states that she is sleeping well at night and claims that the voices have quieted down. Patient continues to have paranoia and mistrust of others and claims that she sits with her back against the wall in groups and also always make sure that she is being seen by cameras. She claims that her priority on this unit is to feel safe. Patient gave repairer typewriter the numbers of 2 of her brothers which she trusts and wants repairer typewriter to get a more balanced opinion of her. Aims that her mood is cheerful and she is practicing yoga and drawing more. She states that she is sleeping well at night. At this time patient denies any suicidal or homical ideations, intent or plan. Patient denies any side effects from the medications and has been compliant with meds. Mental Status Exam: General Appearance: Patient appears to be stated age is alert, directable yet continues to be suspicious of others. Patient's hygiene and grooming are gradually improving. Patient gait is mildly improved from yesterday and has a brighter affect today. Appears to be less rigid. Behavior: Patient is calmly seated without any agitated behavior. Speech: Patient's speech is fluent and nonpressured. Mood/Affect: Patient reports their mood is "well", affect is congruent Suicidality/Homicidality: Patient denies having any suicidal or homicidal ideation intent or plan. Perceptions: Patient denies any auditory or visual hallucinations. Though content/process: patient is linear and goal oriented however continues to be paranoid. Memory and concentration: AOX3, grossly intact for the purposes of this session Judgment and insight: poor, improving Assessment Schizophrenia Plan: -Patient continues to meet criteria for inpatient psychiatric admission for symptom stabilization and safety. Patient had her court hearing and was issued a 60/180 treatment order. -Medications: Will continue to increase Abilify to 7 mg daily with plan to increase as tolerated for psychosis. Plan will be to give the long-acting injection once stabilized. -When necessary Haldol and Ativan for agitation/aggression. -SW on board for discharge planning.
[2018-12-23] MEDS: LORATADINE 10 MG TAB PO SCH (08:34)
[2018-12-23] MEDS: ARIPiprazole 2 MG TAB PO SCH (08:35)
[2018-12-23] MEDS: BACITRACIN 500 UNIT/GM OINT 28.4 GM TUBE TOPICAL SCH ×2 (08:44→21:03)
--- NOTE | 2018-12-23 10:00 | P.PN ---
Progress Note - Text Progress Note Date: 12/23/18 Interval history: Patient was seen near her room and was agreeable to speak to casualty underwriter. Patient states that she had a bit of a rough night last night when a new patient came in and started screaming which reminded her of a forced med hold which she encountered over a week ago. She states that she did have to leave her quiet room and go to her regular room which she was agreeable to. Patient states that she is going to groups and doing better today. She states that she is occupying herself with art. Patient's insight and judgment are improving, paranoia and delusions improving mildly. At this time patient denies any suicidal or homicidal ideations intent or plan. Denies any Auditory or visual hallucinations. Patient denies any side effects from the medications and has been compliant with meds. Mental status exam: General Appearance: Patient appears to be stated age is alert, pleasant, and cooperative. Behavior: No agitated behavior. Patient is calm and directable Speech: Patient's speech is fluent and nonpressured. Mood/Affect: Mood is improving, affect is congruent and constricted. Suicidality/Homicidality: Patient denies having any suicidal or homicidal ideation intent or plan. Perceptions: Patient denies any auditory or visual hallucinations. Though content/process: There is no evidence of any delusional thought content and thought process is linear and goal-directed. Memory and concentration: AOX3, grossly intact for the purposes of this session Judgment and insight: improving Assessment/Plan: Continue with current diagnosis. Patient continues to meet criteria for inpatient psychiatric admission for symptom stabilization and safety.Patient will be maintained on current psychotropic medication regimen with plan to increase Abilify on Tuesday. Monitor for medication compliance and for any psychotropic medication side effects. Will continue to monitor ongoing response to treatment.
[2018-12-23] MEDS: ACETAMINOPHEN TAB 325 MG TAB PO PRN (15:34)
[2018-12-24] MEDS: LORATADINE 10 MG TAB PO SCH (07:42)
[2018-12-24] MEDS: ARIPiprazole 2 MG TAB PO SCH (07:42)
[2018-12-24] MEDS: BACITRACIN 500 UNIT/GM OINT 28.4 GM TUBE TOPICAL SCH ×2 (07:43→21:09)
--- NOTE | 2018-12-24 11:28 | P.PN ---
Progress Note - Text Progress Note Date: 12/24/18 Interval history: Patient was seen wandering the hallways and was agreeable to speak to telegraphic typewriter repairer. Patient states she continues to not trust a certain nurse who is presently mainly on nights and states that she tries to avoid her and have another nurse check on her. Patient claims that she is continuing to work on safety on the unit however does not endorse smudged delusions today and paranoia. Patient states that she is going to groups and doing better today however yesterday had to leave due to feeling a little bit nauseous. She states that she is occupying herself with art and yoga. Patient's insight and judgment are improving, paranoia and delusions improving mildly. At this time patient denies any suicidal or homicidal ideations intent or plan. Denies any Auditory or visual hallucinations. Patient denies any side effects from the medications and has been compliant with meds. Mental status exam: General Appearance: Patient appears to be stated age is alert, pleasant, and cooperative. Behavior: No agitated behavior. Patient is calm and directable Speech: Patient's speech is fluent and nonpressured. Mood/Affect: Mood is improving, affect is congruent and constricted. Suicidality/Homicidality: Patient denies having any suicidal or homicidal ideation intent or plan. Perceptions: Patient denies any auditory or visual hallucinations. Though content/process: There is no evidence of any delusional thought content and thought process is linear and goal-directed. Memory and concentration: AOX3, grossly intact for the purposes of this session Judgment and insight: improving mildly Assessment/Plan: Continue with current diagnosis. Patient continues to meet criteria for inpatient psychiatric admission for symptom stabilization and safety.Patient will be maintained on current psychotropic medication regimen with plan to increase Abilify to 10 mg daily for psychosis. Monitor for medication compliance and for any psychotropic medication side effects. Will continue to monitor ongoing response to treatment.
[2018-12-24] MEDS: ACETAMINOPHEN TAB 325 MG TAB PO PRN (13:19)
[2018-12-25] MEDS: BACITRACIN 500 UNIT/GM OINT 28.4 GM TUBE TOPICAL SCH ×2 (08:38→20:42)
[2018-12-25] MEDS: LORATADINE 10 MG TAB PO SCH (08:38)
[2018-12-25] MEDS: ARIPiprazole 10 MG TAB PO SCH (08:38)
--- NOTE | 2018-12-25 11:54 | P.PN ---
Progress Note - Text Progress Note Date: 12/25/18 Interval History: Patient was seen in the hallways and was agreeable to speak to read in the off ice. Patient appeared to have an improved brighter affect this morning. Patient claims that she had a bad night last night stating that she feels very unsafe with other patients on the unit walking near her door and also states that certain staff members were in charge of her care last August which she did not like. She also made mention that some of the new patients she has heard say things about her under their breath which are racist comments towards her. She claims that she does not know exactly what they stated but feels that it was negative and harmful towards her. Patient continues to feel paranoid about others, certain people on the unit and listed off different staff members which appears to be worsening mildly. She states that she slept poorly last night. She claims that her priority on this unit is to feel safe. Patient asked director underwriter sales if she could have her nails clipped and also have the Epsom salts bath for her feet. At this time patient denies any suicidal or homical ideations, intent or plan. Patient denies any side effects from the medications and has been compliant with meds. She claims that the voices she was really hearing from the [employer] have been quieter. Mental Status Exam: General Appearance: Patient appears to be stated age is alert, directable yet continues to be suspicious of others. Patient's hygiene and grooming are gradually improving. Behavior: Patient is calmly seated without any agitated behavior. Speech: Patient's speech is fluent and nonpressured. Mood/Affect: Patient reports their mood is "okay", affect is congruent and constricted Suicidality/Homicidality: Patient denies having any suicidal or homicidal ideation intent or plan. Perceptions: Patient denies any auditory or visual hallucinations. Though content/process: patient is linear and goal oriented however continues to be paranoid. Memory and concentration: AOX3, grossly intact for the purposes of this session Judgment and insight: poor Assessment: Schizophrenia Plan: -Patient continues to meet criteria for inpatient psychiatric admission for symptom stabilization and safety. Patient had her court hearing and was issued a 60/180 treatment order. -Medications: Will continue to increasing Abilify to 10 mg daily with plan to increase as tolerated for psychosis. Plan will be to give the long-acting injection once stabilized. If patient is not improving at therapeutic dose of Abilify then we will need to switch to another neuroleptic. -When necessary Haldol and Ativan for agitation/aggression. -SW on board for discharge planning.
[2018-12-25] MEDS: ACETAMINOPHEN TAB 325 MG TAB PO PRN (14:28)
[2018-12-26] MEDS: ARIPiprazole 10 MG TAB PO SCH (08:58)
[2018-12-26] MEDS: BACITRACIN 500 UNIT/GM OINT 28.4 GM TUBE TOPICAL SCH ×2 (08:58→20:27)
[2018-12-26] MEDS: LORATADINE 10 MG TAB PO SCH (08:58)
--- NOTE | 2018-12-26 10:34 | P.PN ---
Progress Note - Text Progress Note Date: 12/26/18 Interval History: Patient was seen in her room doing art and was agreeable to speak to database report writer in the office. Patient claims that she is continuing to work on trust and safety on the unit and states that she is having some problems with a few other patients who have been "stalking me". She claims that she feels unsafe when they are around and has asked the nurses many times to keep them away from her. She also claims that she just filed another complaint with the [facility] for people stalking her. Patient remains paranoid and somewhat delusional at times, this appears to be mildly improved from yesterday. She states that she has and trying to go to some of the groups however, claims that they have become boring. Patient claims that she is running out of things to do on the unit. She claims that her mood is "scared still" however denies any depressive symptoms. Patient asked database report writer if she could have her nails clipped and also have the Epsom salts bath for her feet once again. At this time patient denies any suicidal or homical ideations, intent or plan. Patient denies any side effects from the medications and has been compliant with meds. She claims that the voices she was really hearing from the [employer] have been quieter. Mental Status Exam: General Appearance: Patient appears to be stated age is alert, directable yet continues to be suspicious of others. Patient's hygiene and grooming are gradually improving. Behavior: Patient is calmly seated without any agitated behavior. Speech: Patient's speech is fluent and nonpressured. Mood/Affect: Patient reports their mood is "okay", affect is congruent and constricted Suicidality/Homicidality: Patient denies having any suicidal or homicidal ideation intent or plan. Perceptions: Patient denies any auditory or visual hallucinations. Though content/process: patient is linear and goal oriented however continues to be paranoid, this appears to be mildly improved. Memory and concentration: AOX3, grossly intact for the purposes of this session Judgment and insight: poor, improving mildly. Assessment: Schizophrenia Plan: -Patient continues to meet criteria for inpatient psychiatric admission for symptom stabilization and safety. Patient had her court hearing on 12/18/2018 and was issued a 60/180 treatment order. -Medications: Will continue increasing Abilify to 12 mg daily with plan to increase as tolerated for psychosis. Patient only agrees to go up on medication very gradually as she continues to remain paranoid about medications and her treatment. Plan will be to give the long-acting injection once stabilized. If patient is not improving at a therapeutic dose of Abilify then we will need to switch to another neuroleptic. -Will attempt to contact family today to give updates. -When necessary Haldol and Ativan for agitation/aggression. -SW on board for discharge planning.
[2018-12-26] MEDS: ACETAMINOPHEN TAB 325 MG TAB PO PRN (10:52)
[2018-12-27] MEDS: LORATADINE 10 MG TAB PO SCH (08:31)
[2018-12-27] MEDS: ARIPiprazole 2 MG TAB PO SCH (08:31)
[2018-12-27] MEDS: ARIPiprazole 10 MG TAB PO SCH (08:31)
[2018-12-27] MEDS: BACITRACIN 500 UNIT/GM OINT 28.4 GM TUBE TOPICAL SCH ×2 (08:32→21:54)
[2018-12-27] MEDS: ACETAMINOPHEN TAB 325 MG TAB PO PRN (10:32)
--- NOTE | 2018-12-27 14:59 | P.PN ---
Progress Note - Text Progress Note Date: 12/27/18 Interval History: Patient was seen coming out of her room and was agreeable to speak to global technical writer in the office. Patient claims that she was having a better day today and claims that she is still working on trust with certain people on the unit. She listed off one particular night nurse who she does not feel comfortable around and stated that she's been trying to avoid her in her room. Patient today spoke about her injuries to her neck and foot prior to coming into the hospital and claims "nobody did a proper exam on me or even did any kind of x-ray to see if I broke my back". Functional Tester Typewriters discussed with patient about medical clearance and being evaluated in the ER and patient states that she was not evaluated by anybody. She states that she is continue to take Tylenol and doing stretches which is helping her pain. She states that she feels less paranoid today in claims that she doesn't feel stalked as much. She claims that her mood is "ok" and denies any depressive symptoms. Patient was able to get her nails trimmed and have her mom breaking Epsom salt for her foot which is going to do either tonight or tomorrow. At this time patient denies any suicidal or homical ideations, intent or plan. Patient denies any side effects from the medications and has been compliant with meds. She claims that the voices have continuing to be quieter and states that when she is around cameras she feels that the voices are louder however's trying not to pay attention to them. Mental Status Exam: General Appearance: Patient appears to be stated age is alert, directable yet continues to be suspicious of others. Patient's hygiene and grooming are gradually improving. Behavior: Patient is calmly seated without any agitated behavior. Speech: Patient's speech is fluent and nonpressured. Mood/Affect: Patient reports their mood is "ok", affect is congruent and constricted Suicidality/Homicidality: Patient denies having any suicidal or homicidal ideation intent or plan. Perceptions: Patient denies any auditory or visual hallucinations. Though content/process: patient is linear and goal oriented however continues to be paranoid, this appears to be mildly improved. Preoccupied with her pain and somatic symptoms. Memory and concentration: AOX3, grossly intact for the purposes of this session Judgment and insight: poor, improving mildly. Assessment: Schizophrenia Plan: -Patient continues to meet criteria for inpatient psychiatric admission for symptom stabilization and safety. Patient had her court hearing on 12/18/2018 and was issued a 60/180 treatment order. -Medications: Will continue with Abilify to 12 mg daily with plan to increase as tolerated for psychosis. Patient only agrees to go up on medication very gradually as she continues to remain paranoid about medications and her treatment. Plan will be to give the long-acting injection once stabilized. If patient is not improving at a therapeutic dose of Abilify then we will need to switch to another neuroleptic. -When necessary Haldol and Ativan for agitation/aggression. -SW on board for discharge planning.
[2018-12-28] MEDS: ARIPiprazole 10 MG TAB PO SCH (08:54)
[2018-12-28] MEDS: BACITRACIN 500 UNIT/GM OINT 28.4 GM TUBE TOPICAL SCH ×2 (08:54→20:45)
[2018-12-28] MEDS: ARIPiprazole 2 MG TAB PO SCH (08:54)
[2018-12-28] MEDS: LORATADINE 10 MG TAB PO SCH (08:54)
--- NOTE | 2018-12-28 11:56 | P.PN ---
Progress Note - Text Progress Note Date: 12/28/18 Interval History: Patient was seen in the hallways and was agreeable to speak to business writer in the o ffice. Patient claimed that she saw her parents yesterday however was only able to meet with them briefly as she was feeling unsafe and claimed that she didn't want her parents to feel unsafe either and wanted them to go. She states that she continues to feel that some patients are stalking her and saying racist things to her. She also continues to mention that one of the night nurses who she does not trust has been near her room and is preventing her from getting a good night's rest. Patient continues to state that she is working on trust and safety and was able to go to groups this morning and shared her story which she feels more comfortable doing now that she has been here for 26 days on the unit. She claims that her mood is "ok" and denies any depressive symptoms. At this time patient denies any suicidal or homical ideations, intent or plan. Patient denies any side effects from the medications and has been compliant with meds. Patient is somatically preoccupied with adverse reactions and claims that her body is "sensitive" and claims that she will likely take a Tylenol so she does not get a headache from the medication. She claims that the voices have continuing to be quieter. Mental Status Exam: General Appearance: Patient appears to be stated age is alert, directable yet continues to be suspicious of others. Patient's hygiene and grooming are gradually improving. Behavior: Patient is calmly seated without any agitated behavior. Speech: Patient's speech is fluent and nonpressured. Mood/Affect: Patient reports their mood is "fine", affect is congruent and con stricted Suicidality/Homicidality: Patient denies having any suicidal or homicidal ideation intent or plan. Perceptions: Patient denies any auditory or visual hallucinations. Though content/process: patient is linear and goal oriented however continues to be paranoid, this appears to be mildly improved. Preoccupied with somatic symptoms. Memory and concentration: AOX3, grossly intact for the purposes of this session Judgment and insight: poor, improving mildly. Assessment: Schizophrenia Plan: -Patient continues to meet criteria for inpatient psychiatric admission for symptom stabilization and safety. Patient had her court hearing on 12/18/2018 and was issued a 60/180 treatment order. -Medications: Will continue increasing Abilify to 15 mg daily with plan to increase as tolerated for psychosis. Patient only agrees to go up on medication very gradually as she continues to remain paranoid about medications and her treatment. Plan will be to give the long-acting injection once stabilized. If patient is not improving at a therapeutic dose of Abilify then we will need to switch to another neuroleptic. -When necessary Haldol and Ativan for agitation/aggression. -Will speak with parents today over the phone and likely arrange a family meeting sometime next week to discuss the progress and plan further. -SW on board for discharge planning.
[2018-12-28] MEDS: ACETAMINOPHEN TAB 325 MG TAB PO PRN (12:57)
[2018-12-29] MEDS: ARIPiprazole 15 MG TAB PO SCH (08:25)
[2018-12-29] MEDS: BACITRACIN 500 UNIT/GM OINT 28.4 GM TUBE TOPICAL SCH ×2 (08:25→21:03)
[2018-12-29] MEDS: LORATADINE 10 MG TAB PO SCH (08:25)
[2018-12-29] MEDS: ACETAMINOPHEN TAB 325 MG TAB PO PRN ×3 (09:17→18:05)
--- NOTE | 2018-12-29 12:48 | P.PN ---
Progress Note - Text Progress Note Date: 12/29/18 Interval History: Patient was seen in the hallways and was agreeable to speak to field underwriter in the o ffice. Patient states that today she experienced a headache after taking the 15 mg tablet of Abilify and states that it did improve somewhat with Tylenol. Patient continues to express delusional content, today speaking about her neighbors who were stalking her she claims and states that they may have been part of a group that has been after her. She states that they use to spit on their lawn and used to say things about her and she filed a complaint along with her dad on her neighbors and nothing was done. Patient also claims that she spoke with her mother this morning and spoke about the upcoming family meeting on Tuesday and states that she would like to have her brother they're present as well. Patient continues to be mistrustful of certain night nurses and claims that she feels very uncomfortable around him and needs to stay in her room. She claims that she did go to some groups however continues to feel paranoid. She claims that her mood is "fine" and denies any depressive symptoms. At this time patient denies any suicidal or homical ideations, intent or plan. Patient denies any side effects from the medications and has been compliant with meds. She claims that the voices have continuing to be quieter. Mental Status Exam: General Appearance: Patient appears to be stated age is alert, directable yet continues to be suspicious of others. Patient's hygiene and grooming are gradually improving. Behavior: Patient is calmly seated without any agitated behavior. Speech: Patient's speech is fluent and nonpressured. Mood/Affect: Patient reports their mood is "fine", affect is congruent and constricted Suicidality/Homicidality: Patient denies having any suicidal or homicidal ideation intent or plan. Perceptions: Patient denies any auditory or visual hallucinations. Though content/process: patient is linear and goal oriented however continues to be paranoid. Preoccupied with somatic symptoms. Memory and concentration: AOX3, grossly intact for the purposes of this session Judgment and insight: poor, improving mildly. Assessment: Schizophrenia Plan: -Patient continues to meet criteria for inpatient psychiatric admission for symptom stabilization and safety. Patient had her court hearing on 12/18/2018 and was issued a 60/180 treatment order. -Medications: Will continue with Abilify 15 mg daily with plan will be to increase dose to 20mg for tuesday. Patient only agrees to go up on medication very gradually as she continues to remain paranoid about medications and her treatment. I spoke with patient about the increase to 20 mg over the an d patient is agreeable to this plan. Plan will be to give the long-acting injection once stabilized. If patient is not improving at a therapeutic dose of Abilify then we will need to switch to another neuroleptic. -When necessary Haldol and Ativan for agitation/aggression. -After speaking with patient's mother over the phone yesterday, it was agreed that we will have to have a family meeting and it is to be scheduled for Tuesday at 1 PM on the unit to discuss treatment options and further care and to answer any questions. -HAI on board for discharge planning.
[2018-12-30] MEDS: BACITRACIN 500 UNIT/GM OINT 28.4 GM TUBE TOPICAL SCH ×2 (08:13→20:52)
[2018-12-30] MEDS: ARIPiprazole 15 MG TAB PO SCH (08:13)
[2018-12-30] MEDS: ACETAMINOPHEN TAB 325 MG TAB PO PRN ×2 (08:13→13:01)
[2018-12-30] MEDS: LORATADINE 10 MG TAB PO SCH (08:13)
--- NOTE | 2018-12-30 14:23 | P.PN ---
Progress Note - Text Progress Note Date: 12/30/18 Identifying information This patient is a 33-year-old single female admitted to the mental health unit with acute symptoms of psychosis. INTERVAL HISTORY: Patient was seen today. She stated "my doctor has me on good medications its working well for me. When asked about what sort of improvements she has noticed with her medications, she stated "i will pass on that". Denies side effects from medications. She claims ot have been trying to go most of her groups and will avoid groups if she doesnt feel safe. She is expecting her family to visit her either today or tomorrow. She reports eating and sleeping well. She however stated she has missing on eating organic foods and essential oils. She says she loves gardening. MENTAL STATUS EXAMINATION: 33 year old woman, in fair grooming and hygeine. Maintains good eye contact. Her sppech and thought process are goal directed. Her mood is reported as good and affect appropriate. Denies current auditory or visual halluciantions. She has paranoid and persecutory delusions about being stalked by various gangs and claims one of the guys had revealed himself to be Efraín russo. She The patient is alert and oriented 4 . thought content is negative for suicidal or homicidal ideation. insight and judgment are limited. Assessment: Schizophrenia PLAN: no further changes at this time.
--- NOTE | 2018-12-30 15:37 | P.PN ---
Progress Note - Text Progress Note Date: 12/30/18 IDENTIFICATION DATA: 59-year-old male admitted to [facility] unit due to worsening delusions and bizarre behavior/aggression. INTERVAL HISTORY: Patient was seen today. He reports feeling nervous around people who put him down, especially his family members. He denies feeling nervous in the hospital and states people in the hospital dont bother him much. He stated he likes going to his groups. He bragged about he is being mistreated by his family members and stated he does not want to go back to his brothers house if they continue to treat him bad. He staed he wants to have his own place. He reports his brother bossing over him. He says he gets social security disability but is concerned that he may not be able to get his own place due to his history of being a sexual offender. MENTAL STATUS EXAMINATION: 59 year old morbidly obese male in marginal grooming and hygiene. Maintains good eye contact. His speech and thought process are pressured, tangential. Mood is reported as ok and affect constricted. Denies current auditory or visual hallucinations and paranoid ideations. He is alert and oriented x 4. Vinayak current suicidal or homicidal ideations. insight and judgment are limited. ASSESSMENT Psychosis unspecified PLAN: Continue current treatment.
[2018-12-31] MEDS: ACETAMINOPHEN TAB 325 MG TAB PO PRN (09:20)
[2018-12-31] MEDS: ARIPiprazole 15 MG TAB PO SCH (09:21)
[2018-12-31] MEDS: LORATADINE 10 MG TAB PO SCH (09:21)
[2018-12-31] MEDS: BACITRACIN 500 UNIT/GM OINT 28.4 GM TUBE TOPICAL SCH (09:31)
--- NOTE | 2018-12-31 17:43 | P.PN ---
Progress Note - Text Progress Note Date: 12/31/18 Identifying information This patient is a 33-year-old single female admitted to the mental health unit with acute symptoms of psychosis. 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 She made several reqiuests today, asked if she could have tweasers, essential oil and organic food. She was advised to talk to staff about hospital policies on having organic food and essential oils on the uit. She states one of the patient is alelrgic to pippermint oil. She talked about being diagnosed with non hohimotos thyroiditis and mycoplasm infection and says organic food and essential oils have helped her from recovering from those conditions. She says sh eis afraid of taking levothyroxine. She reports good sleep and appetite. She follows unit routine. MENTAL STATUS EXAMINATION: 33 year old woman, in fair grooming and hygeine. Maintains good eye contact. Her sppech and thought process are tangential Her mood is reported as good and affect appropriate. Denies current auditory or visual halluciantions. She has paranoid and persecutory delusions She The patient is alert and oriented 4 . thought content is negative for suicidal or homicidal ideation. insight and judgment are limited. Assessment: Schizophrenia PLAN: Continue current treatment
[2019-01-01] MEDS: LORATADINE 10 MG TAB PO SCH (09:08)
[2019-01-01] MEDS: ARIPiprazole 15 MG TAB PO SCH (09:08)
[2019-01-01] MEDS: ACETAMINOPHEN TAB 325 MG TAB PO PRN ×2 (09:08→12:16)
--- NOTE | 2019-01-01 10:23 | P.PN ---
Progress Note - Text Progress Note Date: 01/01/19 Interval History: Patient was seen in the hallways and was agreeable to speak to instructional writer in the office. Patient states that she had a pretty bad day over the weekend stating that she is seeking a restraining order on "Bill Abena" and states that she spoke to the social media sr strategy manager about her earlier today and made calls to have that happen. When asked what exactly occurred, patient states that she had a feeling that he was whispering negative things to her and had a feeling also that he may come after her and check himself into the ER and try to get admitted to the unit to hurt her. Patient continues to express delusional content seemed around paranoia. Patient continues to be mistrustful of certain night nurses and states that one of them denied her yogurt which after she claims she filed a complaint with the [facility] against her. She claims that she did go to some groups over the weekend. She claims that her mood is "ok" and denies any depressive symptoms. At this time patient denies any suicidal or homical ideations, intent or plan. Patient denies any side effects from the medications and has been compliant with meds. She claims that she has been hearing voices telling her to kill herself and asked abut the fan on to drowned out those voices. Mental Status Exam: General Appearance: Patient appears to be stated age is alert, directable yet continues to be suspicious of others. Patient's hygiene and grooming are gradually improving. Behavior: Patient is calmly seated without any agitated behavior. Speech: Patient's speech is fluent and nonpressured. Mood/Affect: Patient reports their mood is "ok", affect is congruent and constricted Suicidality/Homicidality: Patient denies having any suicidal or homicidal ideation intent or plan. Perceptions: Patient denies any auditory or visual hallucinations. Though content/process: patient is linear and goal oriented however continues to be paranoid. Memory and concentration: AOX3, grossly intact for the purposes of this session Judgment and insight: poor, improving mildly. Assessment: Schizophrenia Plan: -Patient continues to meet criteria for inpatient psychiatric admission for symptom stabilization and safety. Patient had her court hearing on 12/18/2018 and was issued a 60/180 treatment order. -Medications: Will increase Abilify to 20 mg daily. Patient only agrees to go up on medication very gradually as she continues to remain paranoid about medications and her treatment. Plan will be to give the long-acting injection once stabilized. If patient is not improving at a therapeutic dose of Abilify then we will need to switch to another neuroleptic. -PRN Haldol and Ativan for agitation/aggression. -Will continue with family meeting scheduled for Tuesday at 1 PM on the unit to discuss treatment options and further care and to answer any questions. -SW on board for discharge planning.
[2019-01-01] MEDS ORDERED: ARIPiprazole 5 MG TAB PO ONE (12:03)
[2019-01-02] MEDS: LORATADINE 10 MG TAB PO SCH (08:23)
[2019-01-02] MEDS: ACETAMINOPHEN TAB 325 MG TAB PO PRN (08:23)
[2019-01-02] MEDS ORDERED: ARIPiprazole 5 MG TAB PO ONE (10:21)
--- NOTE | 2019-01-02 11:30 | P.PN ---
Progress Note - Text Progress Note Date: 01/02/19 Interval History: Patient was seen in the hallways and was agreeable to speak to typewriter ribbon winder in the o ffice. Patient states that she is continuing to feel unsafe around certain patients on the unit along with negative nurses. Patient spoke about not wanting to go to group this morning as one of the social workers who she does not trust was running the group and she felt that she may want to hurt her. Patient spoke about other patients on the unit thinking negative thoughts about her and saying racist things about Worship people. Patient also spoke about hearing the FBI speaking to her which are only saying positive things and wanting to help her. She claims that her mood is "ok" and denies any depressive symptoms. Patient claims that on the 20 mg of Abilify she is feeling "a lot happier and to calm". At this time patient denies any suicidal or homical ideations, intent or plan. Patient denies any side effects from the medications and has been compliant with meds. Mental Status Exam: General Appearance: Patient appears to be stated age is alert, directable yet continues to be suspicious of others. Patient's hygiene and grooming are improving. Behavior: Patient is calmly seated without any agitated behavior. Speech: Patient's speech is fluent and nonpressured. Mood/Affect: Patient reports their mood is "alright", affect is congruent and constricted Suicidality/Homicidality: Patient denies having any suicidal or homicidal ideation intent or plan. Perceptions: Patient denies any auditory or visual hallucinations. Though content/process: patient is linear and goal oriented however continues to be paranoid. Memory and concentration: AOX3, grossly intact for the purposes of this session Judgment and insight: poor, improving mildly. Assessment: Schizophrenia Plan: -Patient continues to meet criteria for inpatient psychiatric admission for symptom stabilization and safety. Patient had her court hearing on 12/18/2018 and was issued a 60/180 treatment order. -Medications: Will continue with Abilify to 20 mg daily. Patient only agrees to go up on medication very gradually as she continues to remain paranoid about medications and her treatment. Plan will be to give the long-acting injection once stabilized. -PRN Haldol and Ativan for agitation/aggression. -Will continue with family meeting scheduled for tomorrow at 1 PM on the unit to discuss treatment options and further care and to answer any questions. -AHI on board for discharge planning
[2019-01-03] MEDS: LORATADINE 10 MG TAB PO SCH (08:27)
[2019-01-03] MEDS: ACETAMINOPHEN TAB 325 MG TAB PO PRN ×2 (08:28→15:24)
--- NOTE | 2019-01-03 11:35 | P.PN ---
Progress Note - Text Progress Note Date: 01/03/19 Interval History: Patient was seen in in her room and was agreeable to speak to functional tester typewriters in the of ronal. Patient states that yesterday was not a good day for her and she felt more unsafe around people. Patient listed off to other patients who she claims were knocking at her door and whispering things to her which made her feel scared last night. Patient also stated that she did not feel comfortable going to group and stayed in her room yesterday. Patient also spoke about a conspiracy by "some corporate person" to have her hospitalized as a plot against her. Patient continues to endorse several paranoid delusions. Patient also spoke about attempting to reach out to a panama hat blocker in [place] to file complaints and help her case. She claims that her mood is "the same" and denies any depressive symptoms. Patient claims that she does not feel good on the 20 mg dose of Abilify and states that 15 mg was a better dose for her. She states that she is experiencing a side effect "makes me feel too happy and going too fast". At this time patient denies any suicidal or homical ideations, intent or plan. Patient has been compliant with meds. Patient is looking forward to family meeting today. Mental Status Exam: General Appearance: Patient appears to be stated age is alert, directable yet continues to be suspicious of others. Patient's hygiene and grooming are improving. Behavior: Patient is calmly seated without any agitated behavior. Speech: Patient's speech is fluent and nonpressured. Mood/Affect: Patient reports their mood is "the same", affect is congruent and constricted Suicidality/Homicidality: Patient denies having any suicidal or homicidal ideation intent or plan. Perceptions: Patient denies any auditory or visual hallucinations. Though content/process: patient is linear and goal oriented however continues to be paranoid. Shared several paranoid delusions. Memory and concentration: AOX3, grossly intact for the purposes of this session Judgment and insight: poor, improving mildly. Assessment: Schizophrenia Plan: -Patient continues to meet criteria for inpatient psychiatric admission for symptom stabilization and safety. Patient had her court hearing on 12/18/2018 and was issued a 60/180 treatment order. -Medications: Patient received Abilify today to 20 mg however after 3 days of this medication it appears that patient has not been seeing full benefits. We'll be discussing today with family and patient new medication likely in invega or Prolixin to begin a cross taper. We'll likely need a long-acting injection after stabilization. -PRN Haldol and Ativan for agitation/aggression. -Will continue with family meeting scheduled for today at 1 PM on the unit to discuss treatment options and further care and to answer any questions. -SW on board for discharge planning
[2019-01-04] MEDS: ACETAMINOPHEN TAB 325 MG TAB PO PRN ×2 (08:04→15:47)
[2019-01-04] MEDS: LORATADINE 10 MG TAB PO SCH (08:04)
[2019-01-04] MEDS ORDERED: ARIPiprazole 15 MG TAB PO SCH (09:00)
--- NOTE | 2019-01-04 12:55 | P.PN ---
Progress Note - Text Progress Note Date: 01/04/19 Interval History: Patient was seen in in her room and was agreeable to speak to song writer in the of ronal. Patient complains of smelling paint in the quiet room and states that it is bothering her as this is the only place where she is feeling safe at the moment. She states that she is not feeling safe in her original room due to lack of cameras. She claims that she did not sleep well last night as there is a new patient on the unit who she believes is trying to hurt her or kill her and claims that he may be part of the plan sent by [facility]'s to attack her. Patient listed off to other patients on the unit who also may be after her. Patient states that she is simply trying to stay away from them at this time and stay safe. Patient continues to endorse several paranoid delusions. Patient also spoke about the family meeting yesterday which she claims went well and she agrees to be on board with the plan. Patient is agreeable to take Invega by mouth however states that she would like to wait until tomorrow to begin this. At this time patient denies any suicidal or homical ideations, intent or plan. Patient has been compliant with meds. Mental Status Exam: General Appearance: Patient appears to be stated age is alert, directable yet continues to be suspicious of others. Patient's hygiene and grooming are improving. Behavior: Patient is calmly seated without any agitated behavior. Speech: Patient's speech is fluent and nonpressured. Mood/Affect: Patient reports their mood is "same", affect is congruent and constricted Suicidality/Homicidality: Patient denies having any suicidal or homicidal ideation intent or plan. Perceptions: Patient denies any auditory or visual hallucinations. Though content/process: patient is linear and goal oriented however continues to be paranoid. Shared several paranoid delusions. Memory and concentration: AOX3, grossly intact for the purposes of this session Judgment and insight: poor Assessment: Schizophrenia Plan: -Patient continues to meet criteria for inpatient psychiatric admission for symptom stabilization and safety. Patient had her court hearing on 12/18/2018 and was issued a 60/180 treatment order. -Medications: Patient will be titrated off Abilify, reduce the dose to 15mg today and 10 mg tomorrow. Patient is agreeable to commence Invega by mouth tomorrow, will start at 3 mg daily. Will likely need a long-acting injection after stabilization. -PRN Haldol and Ativan for agitation/aggression. -Family meeting was conducted yesterday and went well. Family appears to be on board with plan to move forward with cross titration of Abilify and replacement with Invega by mouth. Questions and concerns were answered about patient's care. -SW on board for discharge planning
[2019-01-05] MEDS: ACETAMINOPHEN TAB 325 MG TAB PO PRN ×2 (08:21→20:19)
[2019-01-05] MEDS: PALIPERIDONE 3 MG TAB.ER.24 PO SCH (08:23)
[2019-01-05] MEDS: LORATADINE 10 MG TAB PO SCH (08:23)
[2019-01-05] MEDS ORDERED: ARIPiprazole 10 MG TAB PO SCH (09:00)
--- NOTE | 2019-01-05 10:11 | P.PN ---
Progress Note - Text Progress Note Date: 01/05/19 Interval History: Patient was seen in in her room as she was sleeping on the floor and was agree able to speak to commercial insurance underwriter in the office. Patient complains of an ongoing smell over the night and described it as a "sewagy smell" and she found it difficult to sleep. Patient also listed off several different patients on the unit who she is attempting to stay away from as she feels uncomfortable around them. She states that she is trying to go to groups for several minutes however is not feeling "entirely safe". Patient continues to speak about White supremacist's trying to attack her. Patient continues to endorse several paranoid delusions. Patient is agreeable to continue taking Invega howevs concerned about the side effects and asks commercial insurance underwriter several times to explain the side effects. At this time patient denies any suicidal or homical ideations, intent or plan. Patient has been compliant with meds. Mental Status Exam: General Appearance: Patient appears to be stated age is alert, directable yet continues to be suspicious of others. Patient's hygiene and grooming are fair Behavior: Patient is calmly seated without any agitated behavior. Speech: Patient's speech is fluent and nonpressured. Mood/Affect: Patient reports their mood is "alright", affect is congruent and constricted Suicidality/Homicidality: Patient denies having any suicidal or homicidal ideation intent or plan. Perceptions: Patient denies any auditory or visual hallucinations. Though content/process: patient is linear and goal oriented however continues to be paranoid. Shared several paranoid delusions. Memory and concentration: AOX3, grossly intact for the purposes of this session Judgment and insight: poor, improving mildly Assessment: Schizophrenia Plan: -Patient continues to meet criteria for inpatient psychiatric admission for symptom stabilization and safety. Patient had her court hearing on 12/18/2018 and was issued a 60/180 treatment order. -Medications: Patient will be continued to be titrated off Abilify, reduce the dose to 5mg tomorrow. Patient is agreeable to continue with Invega 3 mg daily. This will med regimen should be continued over the weekend as patient feels comfortable with it. -PRN Haldol and Ativan for agitation/aggression. -Patient was encouraged to participate in group as best as she can and write down how many minutes she is able to stay without feeling scared and needing to leave. -HAI on board for discharge planning
[2019-01-06] MEDS: ACETAMINOPHEN TAB 325 MG TAB PO PRN ×2 (08:45→13:34)
[2019-01-06] MEDS: ARIPiprazole 5 MG TAB PO SCH (08:46)
[2019-01-06] MEDS: PALIPERIDONE 3 MG TAB.ER.24 PO SCH (08:46)
[2019-01-06] MEDS: LORATADINE 10 MG TAB PO SCH (08:46)
--- NOTE | 2019-01-06 14:02 | P.PN ---
Progress Note - Text Progress Note Date: 01/06/19 Interval history: Patient is seen in cross coverage with nursing staff present. Patient relates she didn't sleep that well last night, describes back discomfort. She is currently being tapered off of Abilify and started on and data. She does not seem to complain of any adverse psychotropic medication side effects. Mental status exam: She is alert and cooperative with the interview. Her affect overall is restricted. Her mood she describes as pretty good. She denies any thoughts of harm to self or others. She does describe thoughts related to several peers and staff regarding concerns that they're going to hurt her. She does not verbalize any hallucinations. She does not show any agitation. Plan: Patient will be maintained on current psychotropic medication regimen will continue to monitor for any medication side effects monitor her ongoing response to treatment.
[2019-01-06] MEDS: LORazepam 1 MG TAB PO PRN (19:43)
[2019-01-07] MEDS: ARIPiprazole 5 MG TAB PO SCH (09:36)
[2019-01-07] MEDS: PALIPERIDONE 3 MG TAB.ER.24 PO SCH (09:36)
[2019-01-07] MEDS: LORATADINE 10 MG TAB PO SCH (09:36)
[2019-01-07] MEDS: ACETAMINOPHEN TAB 325 MG TAB PO PRN (09:37)
[2019-01-07] MEDS: LORazepam 1 MG TAB PO PRN ×2 (10:39→18:57)
--- NOTE | 2019-01-07 10:53 | P.PN ---
Progress Note - Text Progress Note Date: 01/07/19 Interval history: Patient seen in [facility] in today. She had a difficult time last night, nursing staff called me regarding patient's status. Patient reports that she was feeling not safe. She talks about feeling as though specific nurse was going to hurt her and then a group of patients was going to hurt her. She makes reference to hearing patient's talk under their breath about hurting her. Mental status exam: She is alert and cooperative with the interview. She is not showing any agitation. Her affect is restricted. She denies any thoughts of harm to self or others. She verbalizes thoughts regarding concerns of a nurse hurting her as well as a group of patients. She makes reference to hearing patient's talk under their breath about hurting her. She is seen with nursing staff present. Plan: We'll maintain current psychotropic medication regimen. She is being tape red off of Abilify and has been started on an Martines. Patient is agreeable to further titration of an Martines. She is encouraged to discuss her medications with Dr. giordano as tomorrow. She also makes reference to wanting to be transferred to another facility which I encouraged her to talk with Dr. giordano as about as well.
[2019-01-08] MEDS: PALIPERIDONE 3 MG TAB.ER.24 PO SCH (08:12)
[2019-01-08] MEDS: LORATADINE 10 MG TAB PO SCH (08:12)
[2019-01-08] MEDS: ARIPiprazole 5 MG TAB PO SCH (08:12)
[2019-01-08] MEDS: LORazepam 1 MG TAB PO PRN (11:36)
--- NOTE | 2019-01-08 11:40 | P.PN ---
Progress Note - Text Progress Note Date: 01/08/19 Interval History: Patient was seen in the hallway and was agreeable to speak to automotive service writer in the of ronal. Patient appeared to be more suspicious today and endorsed feeling scared and stating that more people are trying to kill her. Patient spoke about "Bill Estelait" infiltrating more people with technology and having them out to get her and kill her. Patient even stated that automotive service writer was being "a little bit infiltrated". Patient appeared to be anxious and paranoid while sitting in the chair and stated that she did not have a good weekend and wants to leave. Gridcap Machine Operator did speak with patient briefly about her medications and patient stated that "I don't want to talk about this I don't feel safe right now" and left the room agreeing to speak to automotive service writer tomorrow. At this time patient denies any suicidal or homical ideations, intent or plan. Patient has been compliant with meds. Mental Status Exam: General Appearance: Patient appears to be stated age is alert, directable yet appears to be more paranoid today. Patient's hygiene and grooming are poor Behavior: Patient appears anxious and paranoid seated without any agitated behavior. Speech: Patient's speech is fluent and nonpressured. Mood/Affect: Patient reports their mood is "scared", affect is congruent and constricted Suicidality/Homicidality: Patient denies having any suicidal or homicidal ideation intent or plan. Perceptions: Patient denies any auditory or visual hallucinations. Though content/process: patient is linear and goal oriented however continues to be paranoid. Shared several paranoid delusions. Memory and concentration: AOX3, grossly intact for the purposes of this session Judgment and insight: poor Assessment: Schizophrenia Plan: -Patient continues to meet criteria for inpatient psychiatric admission for symptom stabilization and safety. Patient had her court hearing on 12/18/2018 and was issued a 60/180 treatment order. -Medications: Patient will need to have her Abilify increased temporarily to 10 mg for tomorrow and once intake reaches a higher dose Abilify will be titrated off again. Will increase intake to 4.5 mg by mouth tomorrow for psychosis with a plan to increase as tolerated. This will med regimen should be continued over the weekend as patient feels comfortable with it. -PRN Haldol and Ativan for agitation/aggression. -Patient was encouraged to participate in group as best as she can. -SW on board for discharge planning
[2019-01-09] MEDS: LORATADINE 10 MG TAB PO SCH (08:18)
[2019-01-09] MEDS: PALIPERIDONE 6 MG TAB.ER.24 PO SCH (08:18)
[2019-01-09] MEDS: ARIPiprazole 5 MG TAB PO SCH (08:35)
--- NOTE | 2019-01-09 08:39 | P.PN ---
Progress Note - Text Progress Note Date: 01/09/19 Interval History: Patient was seen in the morning receiving her a.m. medications and was suspici ous of an increase in her Abilify and stated that she wanted to be on 5 mg, patient was instructed to take the other medications as ordered and the Abilify would be decreased today. Patient was agreeable to speak to typewriter mechanic in the office. Patient appeared to be somewhat suspicious however was directable and able to sit throughout the interview and was less paranoid today. She states that yesterday a lot of people which that she felt was out to harm her had been discharged from the unit so she is feeling a bit safer was able to sleep last night. Patient claims that she woke up early had a shower and did stretches in her room and was feeling in a better mood today. At this time patient denies any suicidal or homical ideations, intent or plan. Patient has been compliant with meds. Mental Status Exam: General Appearance: Patient appears to be stated age is alert, directable. Patient's hygiene and grooming are fair. Behavior: Patient appears less anxious yet somewhat suspicious. Speech: Patient's speech is fluent and nonpressured. Mood/Affect: Patient reports their mood is "alright", affect is congruent and constricted Suicidality/Homicidality: Patient denies having any suicidal or homicidal ideation intent or plan. Perceptions: Patient denies any auditory or visual hallucinations. Though content/process: patient is linear and goal oriented. Shared less paranoid delusions. Memory and concentration: AOX3, grossly intact for the purposes of this session Judgment and insight: poor, improving mildly Assessment: Schizophrenia Plan: -Patient continues to meet criteria for inpatient psychiatric admission for symptom stabilization and safety. Patient had her court hearing on 12/18/2018 and was issued a 60/180 treatment order. -Medications: Patient is requesting to go down on the Abilify to 5 mg for today, with gradual titration off. Will continue with Invega to 6 mg by mouth today for psychosis with a plan to increase as tolerated. -PRN Haldol and Ativan for agitation/aggression. -Patient was encouraged to participate in group as best as she can. -SW on board for discharge planning
[2019-01-09] MEDS ORDERED: ARIPiprazole 10 MG TAB PO SCH (09:00)
[2019-01-09] MEDS ORDERED: PALIPERIDONE 3 MG TAB.ER.24 PO SCH (09:00)
[2019-01-10] MEDS: ARIPiprazole 5 MG TAB PO SCH (09:24)
[2019-01-10] MEDS: LORATADINE 10 MG TAB PO SCH (09:24)
[2019-01-10] MEDS: PALIPERIDONE 6 MG TAB.ER.24 PO SCH (09:24)
--- NOTE | 2019-01-10 13:48 | P.PN ---
Progress Note - Text Progress Note Date: 01/10/19 Interval History: Patient was seen today after she was done eating her lunch and was agreeable to speak to ghost writer in the office. Patient claims that she was eating lunch in her room so that she could stay safe and away from other people on the unit. 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 Patient states that she is feeling somewhat safer and less paranoid however continues to ask ghost writer about being transferred to another hospital and when asked why she states that "because it's more diverse there and I'm scared for my life here". Patient appeared to be somewhat suspicious yet was directable and able to sit throughout the interview and was less paranoid today. She states that yesterday was not a very good day for her but today she claims that her mood is better. Patient claims that she woke up early had a shower and did stretches. At this time patient denies any suicidal or homical ideations, intent or plan. Patient has been compliant with meds. Patient claims that the voices of mildly improved. Patient is agreeable to continue with titration of medications. Mental Status Exam: General Appearance: Patient appears to be stated age is alert, directable. Patient's hygiene and grooming are fair. Behavior: Patient appears less anxious yet somewhat suspicious. Speech: Patient's speech is fluent and nonpressured. Mood/Affect: Patient reports their mood is "better", affect is congruent and constricted Suicidality/Homicidality: Patient denies having any suicidal or homicidal ideation intent or plan Perceptions: Patient denies any auditory or visual hallucinations. Though content/process: patient is linear and goal oriented. Shared less paranoid delusions. Memory and concentration: AOX3, grossly intact for the purposes of this session Judgment and insight: poor, improving mildly Assessment: Schizophrenia Plan: -Patient continues to meet criteria for inpatient psychiatric admission for symptom stabilization and safety. Patient had her court hearing on 12/18/2018 and was issued a 60/180 treatment order. -Medications: Patient is agreeable to decrease the Abilify to 2 mg for today, with gradual titration off. Will continue increasing Invega to 9 mg by mouth today for psychosis with a plan to increase as tolerated. -PRN Haldol and Ativan for agitation/aggression. -Patient was encouraged to participate in group as best as she can. -SW on board for discharge planning. Patient will need a long-acting injection before being discharged.
[2019-01-11] MEDS: LORATADINE 10 MG TAB PO SCH (08:05)
[2019-01-11] MEDS: PALIPERIDONE 3 MG TAB.ER.24 PO SCH (08:05)
[2019-01-11] MEDS ORDERED: ARIPiprazole 2 MG TAB PO SCH (09:00)
--- NOTE | 2019-01-11 12:21 | P.PN ---
Progress Note - Text Progress Note Date: 01/11/19 Interval History: Patient was seen today and was agreeable to speak to magnetic tape typewriter operator in the office. Ariadna lawton appeared to have a brighter affect and was smiling this morning. She states that she is doing well on her medications and feels like it is really helping her paranoia. She states that "more people are on my side now". She continued to speak about [employer] and his various inventions and how he is helping humanity and claims that she really likes him. Patient also claimed that she is going to groups now and claims that she is able to participate more. He states that her mother visited yesterday and there were able to pray and read the Bible together which she enjoyed. Patient appeared to more directable and able to sit throughout the interview. She states that yesterday was not a very good day for her but today she claims that her mood is "much better". At this time patient denies any suicidal or homical ideations, intent or plan. Patient has been compliant with meds. Patient claims that the voices have greatly improved. Patient is agreeable to continue with titration of medications. Mental Status Exam: General Appearance: Patient appears to be stated age is alert, directable. Patient's hygiene and grooming are fair. Behavior: Patient appears less anxious yet somewhat suspicious. Speech: Patient's speech is fluent and nonpressured. Mood/Affect: Patient reports her mood is "much better", affect is congruent Suicidality/Homicidality: Patient denies having any suicidal or homicidal ideation intent or plan Perceptions: Patient denies any auditory or visual hallucinations. Though content/process: patient is linear and goal oriented. Shared less paranoid delusions today. Memory and concentration: AOX3, grossly intact for the purposes of this session Judgment and insight: Fair, improving mildly Assessment: Schizophrenia Plan: -Patient continues to meet criteria for inpatient psychiatric admission for symptom stabilization and safety. Patient had her court hearing on 12/18/2018 and was issued a 60/180 treatment order. -Medications: Patient to discontinue the Abilify for tomorrow. Will continue with Invega to 9 mg by mouth for psychosis with a plan to increase as tolerated. -PRN Haldol and Ativan for agitation/aggression. -Patient was encouraged to participate in group as best as she can. -SW on board for discharge planning. Patient will need a long-acting injection before being discharged. Project Crew Worker spoke with mother Ariadna over the phone today who agrees that patient must continue on medications and is agreeable to the long- acting injection and will speak with her and son about it. The plan will be to have a family meeting on Tuesday at 1 PM to speak about the long- acting injection and medication compliance as issued by the court order.
[2019-01-12] MEDS: LORATADINE 10 MG TAB PO SCH (07:50)
[2019-01-12] MEDS: PALIPERIDONE 3 MG TAB.ER.24 PO SCH (07:50)
--- NOTE | 2019-01-12 11:45 | P.PN ---
Progress Note - Text Progress Note Date: 01/12/19 Interval History: Patient was seen today and was agreeable to speak to production underwriter in the office. Iker nicholsonamina appeared to have a bright affect once again and was smiling this morning and carrying her folder with pictures and articles related to [employer]. When asked about her folder she once again spoke about his great accomplishments and his new Neurolink technology which may be transplanted into people's brains. She states that she is doing well on her medications and feels like it is helping her stay calm and trust people more. Patient was agreeable to continue on with increased titration of the medication to 12 mg starting tomorrow. Patient did ask several times about being transferred to another hospital however was agreeable to stay and continue on with treatment here in the hospital. She currently denies any depression and states her mood is "getting there" and remains hopeful for discharge. She states that she is continuing to work on trust with other people and is writing down in her journal whether she feels safe in group or not and we'll be discussing it with production underwriter on Tuesday. Patient appeared to more directable and able to sit throughout the interview. . At this time patient denies any suicidal or homical ideations, intent or plan. Patient has been compliant with meds. Patient claims that the voices have greatly improved on the current medications and is thankful for it. Mental Status Exam: General Appearance: Patient appears to be stated age is alert, directable. Patient's hygiene and grooming have improved. Behavior: Patient appears less anxious yet somewhat suspicious. Speech: Patient's speech is fluent and nonpressured. Mood/Affect: Patient reports her mood is "good", affect is congruent Suicidality/Homicidality: Patient denies having any suicidal or homicidal ideation intent or plan Perceptions: Patient denies any auditory or visual hallucinations. Though content/process: patient is linear and goal oriented. Shared less paranoid delusions today and was more focused on her articles about [employer]. Memory and concentration: AOX3, grossly intact for the purposes of this session Judgment and insight: Fair, improving mildly Assessment: Schizophrenia Plan: -Patient continues to meet criteria for inpatient psychiatric admission for symptom stabilization and safety. Patient had her court hearing on 12/18/2018 and was issued a 60/180 treatment order. -Medications: Patient is agreeable to continue on with increase of Invega to 12 mg by mouth for psychosis. Patient will remain on this dose until family meeting on Tuesday to discuss further treatment and review progress. -PRN Haldol and Ativan for agitation/aggression. -Patient was encouraged to participate in group as best as she can. -SW on board for discharge planning. Patient will need a long-acting injection before being discharged. The plan will be to have a family meeting on Tuesday at 1 PM to speak about the long-acting injection and medication compliance as issued by the court order.
[2019-01-12] MEDS: LORazepam 1 MG TAB PO PRN (18:53)
[2019-01-13] MEDS: PALIPERIDONE 6 MG TAB.ER.24 PO SCH (08:05)
[2019-01-13] MEDS: LORATADINE 10 MG TAB PO SCH (08:05)
--- NOTE | 2019-01-13 09:35 | P.PN ---
Progress Note - Text Interval history: The patient is found in the hallway despite to attempts she would not agree to speak with me in a conference room across from the front sight attacher. He states that she will only speak to me in the hallway. Very briefly she indicates she has no questions or concerns and then walks away. Staff report no recent behavioral disturbance. They documented she slept approximately 3 hours last night. Vital signs reviewed blood pressure normal heart rate was recorded at 130 bpm. She has been transitioned to invega and more recently has been placed on the 12 mg dose. Mental status exam: The patient is a thin female appearing her stated age she appears to have adequate hygiene grooming. She is carrying some belon gings with her in the hallway. She ambulates with her arms held in a flexed position. Eye contact is brief. She appears guarded suspicious. She continued to move away from me as we attempted to speak. Insight and judgment remain impaired. It appears she continues to operate with a delusional thought content. Thought process was linear given we had such a brief interaction. She demonstrated no involuntary repetitive movements. Impression/plan: Continued acute symptoms of psychosis. He has been recently transition to invega from [facility]. It appears that she remains functionally impaired due to her psychosis and requires continued psychiatric hospitalization. Vital signs reviewed. We will continue to monitor heart rate.
[2019-01-14] MEDS: LORATADINE 10 MG TAB PO SCH (08:11)
[2019-01-14] MEDS: PALIPERIDONE 6 MG TAB.ER.24 PO SCH (08:11)
--- NOTE | 2019-01-14 10:05 | P.PN ---
Progress Note - Text Interval history: The patient is found in the hallway exiting group. Upon approach she refuses to meet with me in a conference room. He states that she only wants to speak with me in the hallway even though it does compromise her confidentiality. Only for seconds does she participate in the interaction. She states she is on her medicine everything's fine and walks away. Mental status exam: The patient is a thin female she is dressed in her own clothing she is carrying a cup. She is noncompliant with an interview toneha garcia. Eye contact is intermittent. She appears guarded and suspicious. She continues to walk away from me as I attempt to speak to her. She demonstrates some psychomotor slowing. Insight and judgment impaired. She is demonstrating no repetitive involuntary movements that I could observe during this brief interaction. She appears to be in no acute physical distress. Impression/plan: Acute psychosis, continue Invega as written. Vital signs reviewed. We will continue to monitor her by mouth intake. We will continue to monitor her for safety. She requires continued psychiatric hospitalization due to her psychosis.
[2019-01-14] MEDS: ACETAMINOPHEN TAB 325 MG TAB PO PRN (12:39)
[2019-01-15] MEDS: PALIPERIDONE 6 MG TAB.ER.24 PO SCH (09:17)
[2019-01-15] MEDS: LORATADINE 10 MG TAB PO SCH (09:17)
--- NOTE | 2019-01-15 09:23 | PN ---
PROGRESS NOTE DATE OF SERVICE: 01/15/2019 CHIEF COMPLAINT: The patient was delusional. She believes someone was chasing her and she jumped out of a second-story window. INTERVAL HISTORY: Overall, the patient continues about the same. She had a quiet evening last night. She comes out in the day area. She will interact some with peers. She continues to be hesitant if not out right paranoid in her interactions with staff. She slept 7 hours last night. Today she has been up. She has been out on the unit. It is noteworthy that when she attends group she seems to do fairly well. She will interact with others. She presented to me in the same way that she has been showing to others. She declines to have any one-on-one contact. She reports no problems or concerns. She did not ask any questions in regards to her medications or treatment. She says that she tolerates her medications well. MENTAL STATUS: Patient was in the [place]. I saw her on 3 different occasions this morning. Each time she spontaneously made a comment to me that she did not have anything to say and that she really did not need to have an interview with me. When I talked to her she gave fairly good eye contact. She was restless. She did not really answer any questions, though mostly just made comments about saying everything was okay and she had nothing to say. Her affect was somewhat constricted. Her mood reserved. She continues to show paranoid delusions. She was oriented and alert. ASSESSMENT: I will continue the current diagnosis and treatment plan. I will continue psychotropic medications the same. It is unclear to what extent the patient has made progress with her current medication regimen. We will continue to focus on stabilization and discharge planning. MMLOPEZL / ASHAN: [id number] /
[2019-01-16] MEDS: PALIPERIDONE 6 MG TAB.ER.24 PO SCH (08:02)
[2019-01-16] MEDS: LORATADINE 10 MG TAB PO SCH (08:02)
--- NOTE | 2019-01-16 10:32 | P.PN ---
Progress Note - Text Progress Note Date: 01/16/19 Interval History: Patient was seen today and was agreeable to speak to typewriter assembly and parts inspector in the office. Ariadna lawton once again appeared to have a brighter affect and was happy to see typewriter assembly and parts inspector to speak about her weekend. Patient was friendly and pleasant this morning and was asking about possible discharge soon. Patient did not have any preoccupations or share any delusions and stated that her weekend went much better if she was able to go to more groups and attending for longer time and stated that she was not fearful of anybody on the unit. Patient claims that her medications are making her calmer and feel less paranoid. She reports a "good mood" and denies any anxiety at this time. She states that she misses her family and was visited by them over the weekend. He claims that she is tolerating the Invega 12 mg well and denies any current side effects. She stated that she slept much better over the weekend and last night. At this time patient denies any suicidal or homical ideations, intent or plan. Patient has been compliant with meds. Patient claims that the voices have "disappeared". Mental Status Exam: General Appearance: Patient appears to be stated age is alert, directable. Patient's hygiene and grooming have improved. Behavior: Patient appears directable and cooperative. Speech: Patient's speech is fluent and nonpressured. Mood/Affect: Patient reports her mood is "good", affect is congruent with good range. Suicidality/Homicidality: Patient denies having any suicidal or homicidal ideation intent or plan Perceptions: Patient denies any auditory or visual hallucinations. Though content/process: patient is linear and goal oriented. Patient did not didn't endorse any delusions today and states that she is feeling "safer". Memory and concentration: AOX3, grossly intact for the purposes of this session Judgment and insight: Fair, improving mildly Assessment: Schizophrenia Plan: -Patient continues to meet criteria for inpatient psychiatric admission for symptom stabilization and safety. Patient had her court hearing on 12/18/2018 and was issued a 60/180 treatment order. -Medications: Patient is agreeable to continue on with Invega 12 mg by mouth for psychosis. We'll be speaking with family and patient today more about the long- acting injection to ensure compliance -PRN Haldol and Ativan for agitation/aggression. -Patient was encouraged to participate in group as best as she can, patient appears to be going to more groups and is more cooperative and less paranoid. -SW on board for discharge planning. Patient will need a long-acting injection before being discharged. Family meeting planned for today at 1 PM to speak about the long-acting injection and medication compliance as issued by the court order.
[2019-01-16] MEDS ORDERED: PALIPERIDONE IM 234 MG/1.5 ML SYG IM ONE (13:57)
[2019-01-16] MEDS ORDERED: PALIPERIDONE IM 234 MG/1.5 ML SYG IM STA (14:07)
[2019-01-17] MEDS: PALIPERIDONE 6 MG TAB.ER.24 PO SCH (08:40)
[2019-01-17] MEDS: LORATADINE 10 MG TAB PO SCH (08:40)
--- NOTE | 2019-01-17 11:17 | P.PN ---
Progress Note - Text Progress Note Date: 01/17/19 Interval History: Patient was seen today and was agreeable to speak to gag writer in the office. Iker rios once again appeared to have a brighter affect and was carrying her folder with [employer] pictures and articles however did not mention them during the interview. Patient was cooperative and directable and appeared to have improved insight and judgment. Patient was friendly and pleasant and spoke about being more open to going to [facility] for rehabilitation and states that "it may be a good idea". Patient claims at the family meeting went well yesterday and states that she is happy that she is on the medications now and doing much better. Patient did not have any preoccupations or share any delusions today. She states that she is not fearful of anybody on the unit at this time and claims to be going to groups and feeling a lot more comfortable. Patient claims that her medications are making her calmer and feel less paranoid. She reports a "good" and denies any anxiety at this time. She claims that she denies any current side effects. She stated that she slept much better last night. At this time patient denies any suicidal or homical ideations, intent or plan. Patient has been compliant with meds. Mental Status Exam: General Appearance: Patient appears to be stated age is alert, directable. Patient's hygiene and grooming have improved. Behavior: Patient appears directable and cooperative. Speech: Patient's speech is fluent and nonpressured. Mood/Affect: Patient reports her mood is "good", affect is congruent with good range. Suicidality/Homicidality: Patient denies having any suicidal or homicidal ideation intent or plan Perceptions: Patient denies any auditory or visual hallucinations. Though content/process: patient is linear and goal oriented. Patient did not didn't endorse any delusions today and states that she is feeling "safer". Memory and concentration: AOX3, grossly intact for the purposes of this session Judgment and insight: Fair, improving mildly Assessment: Schizophrenia Plan: -Patient continues to meet criteria for inpatient psychiatric admission for symptom stabilization and safety. Patient had her court hearing on 12/18/2018 and was issued a 60/180 treatment order. -Medications: Patient received a loading dose of Invega Sustenna 234 mg IM on 01/16/2019 and will be due for the 156 mg IM injection dose on Tuesday01/21/2019. Patient is agreeable to continue with titrating off by mouth Invega at this time. -Family meeting yesterday took place and went well. Discussed future treatment options and long-acting injection along with answer questions about rehabilitation and other programs that patient can be enrolled in. -PRN Haldol and Ativan for agitation/aggression. -Patient was encouraged to participate in group as best as she can. -HAI on board for discharge planning. Likely discharge after patient receives her next dose of Invega Sustenna
[2019-01-18] MEDS: LORATADINE 10 MG TAB PO SCH (08:27)
[2019-01-18] MEDS: PALIPERIDONE 3 MG TAB.ER.24 PO SCH (08:27)
[2019-01-18 10:10] VITALS: BMI 20.3
--- NOTE | 2019-01-18 11:25 | P.PN ---
Progress Note - Text Progress Note Date: 01/18/19 Interval History: Patient was seen today and was agreeable to speak to documentation writer in the office. Ariadna lawton continues to carry a folder with [employer] pictures and articles however did not mention them during the interview. Patient was cooperative and directable and appeared to have improved insight and judgment once again today. Patient spoke about having a good night sleep last night and slept through the night with no problems and stated that her voices have gone and are no longer present. She stated that she feels that more people are "on my side" standing against her on the unit. She states that there are certain nurses and certain people who she does not trust however she is working on trust in relationships. Patient was curious about her medications and her plan for discharge and is continuing to look forward to other opportunities and asked about possibly working when she is discharged. Patient did not have any preoccupations or share any delusions today. Patient claims that her medications are making her calmer and feel less paranoid. She reports a "fine" and denies any anxiety at this time. She claims that she denies any current side effects. At this time patient denies any suicidal or homical ideations, intent or plan. Patient has been compliant with meds. Mental Status Exam: General Appearance: Patient appears to be stated age is alert, directable. Patient's hygiene and grooming have improved. Behavior: Patient appears directable and cooperative. Speech: Patient's speech is fluent and nonpressured. Mood/Affect: Patient reports her mood is "fine", affect is congruent with good range. Suicidality/Homicidality: Patient denies having any suicidal or homicidal ideation intent or plan Perceptions: Patient denies any auditory or visual hallucinations. Though content/process: patient is linear and goal oriented. Patient did not didn't endorse any delusions today and paranoia continues to improve. Memory and concentration: AOX3, grossly intact for the purposes of this session Judgment and insight: Fair, improving mildly Assessment: Schizophrenia Plan: -Patient continues to meet criteria for inpatient psychiatric admission for symptom stabilization and safety. Patient had her court hearing on 12/18/2018 and was issued a 60/180 treatment order. -Medications: Patient received a loading dose of Invega Sustenna 234 mg IM on 01/16/2019 and will be due for the 156 mg IM injection dose on Tuesday01/21/2019. Patient is agreeable to continue with titrating off by mouth Invega at this time gradually. -PRN Haldol and Ativan for agitation/aggression. -Patient was encouraged to participate in group as best as she can. -SW on board for discharge planning. Likely discharge after patient receives her next dose of Invega Sustenna. Discussed future treatment options and long- acting injection. Patient's family is interested in patient being enrolled in a rehabilitation center when she is discharged from the hospital.
[2019-01-19] MEDS: PALIPERIDONE 3 MG TAB.ER.24 PO SCH (08:24)
[2019-01-19] MEDS: LORATADINE 10 MG TAB PO SCH (08:24)
--- NOTE | 2019-01-19 11:42 | P.PN ---
Progress Note - Text Progress Note Date: 01/19/19 Interval History: Patient was seen today and was agreeable to speak to parts data writer in the office. Ariadna lawton continues to carry a folder with [employer] pictures and articles with her. Patient was cooperative and directable today and had a brighter affect. Patient spoke about having a good night sleep last night, slept throughout the night for 10 hours with no complaints. She continues to claim that the voices have gone and are no longer present or distressing her. She claims that she is feeling le ss paranoid and feels like they're only certain people on the unit which she does not like being around however for the most part is able to interact with most people. Patient continued to speak about [facility] and how she would like to go there for 3 months after discharge and is excited about meeting in speaking with the director and going for a tour upon discharge, patient was encouraged to do so and to take part in the program as long as she can. Patient did not have any preoccupations or share any delusions today. Patient claims that her medications are making her calmer and feel less paranoid. She reports a "good" and denies any anxiety at this time. She claims that she denies any current side effects. At this time patient denies any suicidal or homical ideations, intent or plan. Patient has been compliant with meds. Mental Status Exam: General Appearance: Patient appears to be stated age is alert, directable. Patient's hygiene and grooming have improved. Behavior: Patient appears directable and cooperative. Speech: Patient's speech is fluent and nonpressured. Mood/Affect: Patient reports her mood is "good", affect is congruent with fair range. Suicidality/Homicidality: Patient denies having any suicidal or homicidal ideation intent or plan Perceptions: Patient denies any auditory or visual hallucinations. Though content/process: patient is linear and goal oriented. Patient did not didn't endorse any delusions today and paranoia continues to improve. Memory and concentration: AOX3, grossly intact for the purposes of this session Judgment and insight: Fair, improving mildly Assessment: Schizophrenia Plan: -Patient continues to meet criteria for inpatient psychiatric admission for symptom stabilization and safety. Patient had her court hearing on 12/18/2018 and was issued a 60/180 treatment order. -Medications: Patient received a loading dose of Invega Sustenna 234 mg IM on 01/16/2019 and will be due for the 156 mg IM injection dose on Tuesday01/21/2019. Patient will continue to be titrated off in [place] by mouth and tomorrow will be 6 mg daily. -PRN Haldol and Ativan for agitation/aggression. -Patient was encouraged to participate in group as best as she can. -SW on board for discharge planning. Likely discharge after patient receives her next dose of Invega Sustenna on Tuesday. We'll plan for family meeting prior to discharge.
[2019-01-20] MEDS: LORATADINE 10 MG TAB PO SCH (08:16)
[2019-01-20] MEDS: PALIPERIDONE 6 MG TAB.ER.24 PO SCH (08:18)
--- NOTE | 2019-01-20 10:36 | P.PN ---
Progress Note - Text Progress Note Date: 01/20/19 Interval History: Patient was seen today and was agreeable to speak to process description writer. Patient was coope rative and directable today and stated that she is feeling "positive" about leaving the hospital on Tuesday and had some questions about going back to work and what kind of food that she would be getting at [employer]. Patient spoke about having a good night sleep last night, no complaints. She is less preoccupied with paranoia and stated that she "trust more people". Patient claims that her medications are making her calmer and feel less paranoid. She reports a "better" mood and denies any anxiety at this time. He claims that she is going to groups and trying to participate as long she can. She claims that she denies any current side effects. At this time patient denies any suicidal or homical ideations, intent or plan. Patient denies any auditory visual hallucinations. Mental Status Exam: General Appearance: Patient appears to be stated age is alert, directable. Patient's hygiene and grooming have improved. Behavior: Patient appears directable and cooperative. Speech: Patient's speech is fluent and nonpressured. Mood/Affect: Patient reports her mood is "better", affect is congruent with fair range. Suicidality/Homicidality: Patient denies having any suicidal or homicidal ideation intent or plan Perceptions: Patient denies any auditory or visual hallucinations. Though content/process: patient is linear and goal oriented. Patient did not didn't endorse any delusions today. Memory and concentration: AOX3, grossly intact for the purposes of this session Judgment and insight: Fair, improving mildly Assessment: Schizophrenia Plan: -Patient continues to meet criteria for inpatient psychiatric admission for symptom stabilization and safety. Patient had her court hearing on 12/18/2018 and was issued a 60/180 treatment order. -Medications: Patient received a loading dose of Invega Sustenna 234 mg IM on 01/16/2019 and will be due for the 156 mg IM injection dose on Tuesday01/21/2019. Patient will continue titrating off in Invga by mouth gradually. -PRN Haldol and Ativan for agitation/aggression. -SW on board for discharge planning. Likely discharge after patient receives her next dose of Invega Sustenna on Tuesday. We'll plan for family meeting prior to discharge.
[2019-01-21 06:36] VITALS: RESP 16; TEMP 97.5
[2019-01-21] MEDS: LORATADINE 10 MG TAB PO SCH (08:02)
[2019-01-21] MEDS: PALIPERIDONE 6 MG TAB.ER.24 PO SCH (08:02)
[2019-01-21] MEDS ORDERED: PALIPERIDONE IM 156 MG/ML SYG IM STA (11:23)
--- NOTE | 2019-01-21 11:27 | P.PN ---
Progress Note - Text Progress Note Date: 01/21/19 Interval History: Patient was seen today participating in group and was agreeable to speak to [facility]. Patient was cooperative and directable today and appeared to have a bright affect. She continues to stay optimistic and positive about her discharge date tomorrow and states that she had a visit from her father yesterday which went well and they're continuing to talk about [facility] as a treatment program after she is discharged. Patient spoke about hearing yelling on the unit overnight by another patient and stated that this did scare her however she was able to sleep throughout the night. She is less preoccupied with paranoia today. Patient claims that her medications are making her calmer and feel less paranoid. She reports an improved mood and denies any anxiety at this time. She claims that she is going to groups and trying to participate as long she can. She claims that she denies any current side effects. At this time patient denies any suicidal or homical ideations, intent or plan. Patient denies any auditory visual hallucinations. Mental Status Exam: General Appearance: Patient appears to be stated age is alert, directable. Patient's hygiene and grooming have improved. Behavior: Patient appears directable and cooperative. Speech: Patient's speech is fluent and nonpressured. Mood/Affect: Patient reports her mood is "good", affect is congruent with fair range. Suicidality/Homicidality: Patient denies having any suicidal or homicidal ideation intent or plan Perceptions: Patient denies any auditory or visual hallucinations. Though content/process: patient is linear and goal oriented. Patient did not didn't endorse any delusions today. Memory and concentration: AOX3, grossly intact for the purposes of this session Judgment and insight: Fair, improving mildly Assessment: Schizophrenia Plan: -Patient continues to meet criteria for inpatient psychiatric admission for symptom stabilization and safety. Patient had her court hearing on 12/18/2018 and was issued a 60/180 treatment order. -Medications: Patient received a loading dose of Invega Sustenna 234 mg IM on 01/16/2019 and will be due for the 156 mg IM injection dose today Tuesday01/21/2019. Patient will continue titrating off in Invga by mouth gradually, decreased to 3 mg for tomorrow by mouth. -PRN Haldol and Ativan for agitation/aggression. -SW on board for discharge planning. Likely discharge Tuesday. Plan for family meeting prior to discharge.
[2019-01-22 06:31] VITALS: BP 114/71; PULSE 101
[2019-01-22] MEDS: LORATADINE 10 MG TAB PO SCH (08:43)
[2019-01-22] MEDS ORDERED: PALIPERIDONE 3 MG TAB.ER.24 PO SCH (09:00)
--- NOTE | 2019-01-22 11:18 | P.DS ---
Providers Date of admission: 12/02/18 15:28 Expected date of discharge: 01/22/19 Attending physician: Saulo Rizvi MD Consults: 12/02/18 15:35 Consult Physician Routine Consulting Provider: Alta Landeros Consult Reason/Comments: medical management Do you want consulting provider notified?: Yes Primary care physician: Miriam Esquivel - Discharge Diagnosis(es) (1) Schizophrenia Current Visit: Yes Status: Acute Priority: High Hospital Course: Admission HPI: This patient is a 33-year-old single female who was admitted to the mental health unit with acute symptoms of psychosis. The patient presents with a petition completed by a police aide stating "everyone is out to kill her. Someone is chasing her because her grandpa killed Hua and entered a home and jumped out a second story window." The patient was found in her room she has a one-to-one sitter in place as she has continually tried to elope from the mental health unit. She describes a variety of delusional thoughts. She states that she is being stalked by a man named Lyle Stockton. She claims that he is an older man was a billionaire and is trying to kill her. She states that her grandparents killed Hua and Lyle Stockton wants revenge because Hua was his grandfather. She states that he has hired a group of individuals to stalk her. She claims that he has put chips in her head and in her ears. As a result Lyle can directly communicate with her and in a nonstop fashion tells her he will kill her. She states that they are using directed energy weapons against her while she sleeps. She describes this weapon is heating up the bed or heating the wall so that she is uncomfortable the entire time. She reports that she has called the police and the FBI numerous times to report this. She also states that he is involved in a methamphetamine drug ring. She indicates that she has had these symptoms for approximately 4 years. She states her sleep and appetite have been poor energy levels normal she endorses no crying spells. She feels depressed because of the situation she is in she has resultant anxiety. She reports no suicidal ideation intent or plan she states she is quite fearful of . She reports no homicidal ideation intent or plan. She endorses no visual hallucinations. She indicates that she feels unsafe everywhere. She states that she feels traumatized that she has received injectable medication. She received an injection of Geodon last evening in the ER and she received an injection of Haldol at approximately 1 AM this morning. Hospital course: Upon admission to the unit patient was initially paranoid, bizarre and psycho tic, hearing voices. Patient was initially too paranoid and psychotic to agree to treatment and felt that she was getting poisoned and that her initial 2 psychiatrists were trying to kill her. Patient was noncompliant with her medications initially and a court treatment order was generated on 12/18/2018 for 60/180 days of treatment. Patient was then started on haloperidol liquid and was refusing intermittently medications and also required emergency PRN medication for agitation. While patient was on haloperidol, she developed drug- induced parkinsonism/EPS symptoms and needed to be titrated off Haldol and switched onto another neuroleptic. Patient was then started on Abilify and titrated up to 25 mg daily for psychosis however patient failed to improve with regards to her paranoia and psychosis. At that time a family meeting was done and patient was agreeable to be switched onto Invega. Invega was titrated up to 12 mg daily for psychosis and patient responded very well to this and had a dramatic improvement in her symptoms mainly paranoia and auditory hallucinations. Patient was given Invega Sustenna loading dose of 234 mg IM on 01/16/2019 and also given a second injection of 156 mg IM on 01/21/2019. Patient's next maintenance dose of 234 mg IM of Invega Sustenna will be due on 02/11/2019 and should be given to monthly after that for psychosis. Patient was able to function much better to get along with more people on the unit and to follow unit protocol. Patient was also able to trust more patients on the unit and not endorse/be preoccupied with her delusions. As patient progressed through treatment and became more stable she was able to get along well with other patients on the unit and followed unit protocol. Patient was compliant with the medications thereafter and denied any side effects throughout hospital course except for mild acne on her face which gradually improved with time. Patient spoke of her stressors and engaged in therapy both group and individual. Patient was also seen by medical team for history and physical exam. Since patient presented to the ER after jumping out of a window and being injured from it, patient received a computed tomography scan of her head and neck which showed no acute intracranial changes and no dislocation or fracture of her cervical spine. Patient also received x-rays of her foot, lumbar spine and pelvis which all showed no acute osseous changes. Throughout the course of the hospitalization patient gradually improved with regards to psychotic sx, paranoia, voices, delusions, mood, sleep and became future oriented with improved insight and judgment. On the day of discharge patient denied any suicidal or homicidal ideations intent or plan denied any auditory or visual hallucinations. Patient endorsed wanting to live for her health and her family. The patient denied any access to guns or weapons. Patient denied any paranoia and did not endorse any delusions. Patient does not have a significant history of substance abuse however was counseled on abstaining from all substances including alcohol and marijuana. Patient was also counseled on the medications and need for regular compliance and was encouraged to follow-up with their outpatient appointment for mental health and also for primary care. Prior to discharge a family meeting will be arranged by social service assistant to answer any questions and ensure safety upon discharge. Mental status exam: General Appearance: Patient appears to be stated age is alert, pleasant, and cooperative. Patient is in no acute distress and has fair hygiene and grooming Behavior: Patient is calmly seated without any agitated behavior. Speech: Patient's speech is fluent and nonpressured. Mood/Affect: Patient reports their mood is "better ", affect is congruent and euthymic. Suicidality/Homicidality: Patient denies having any suicidal or homicidal ideation intent or plan. Perceptions: Patient denies any auditory or visual hallucinations. Though content/process: There is no evidence of any delusional thought content and thought process is linear and goal-directed. Memory and concentration: AOX3, grossly intact for the purposes of this session. Can spell "WORLD" backwards correctly. Judgment and insight: fair, improved Impression: Schizophrenia Plan: -Continue with discharge today as patient has improved and stabilized psychiatrically and is not currently an imminent threat to herself and/or others. -Continue medications: Patient was titrated off Invega by mouth and is currently on Invega Sustenna. Patient was given Invega Sustenna loading dose of 234 mg IM on 01/16/2019 and also given a second injection of 156 mg IM on 01/21/2019. Patient's next maintenance dose of 234 mg IM of Invega Sustenna will be due on 02/11/2019 and should be given to monthly after that for psychosis. -Court treatment order was generated on 12/18/2018 for 60/180 days of treatment. -Patient was counseled on the need for medication compliance and appropriate follow-up at mental health and also primary care for medical issues. Patient verbalized understanding and agreed. -Social work to arrange for and conduct family meeting to ensure safety upon dis charge and answer any questions/concerns. Social work also to arrange for patients follow up appointments with [facility] for psychiatric care. Family and patient at this time were interested in transferring patients care to [place] upon discharge. Patient and family expressed that she will be going for a intake/meeting and tour in the next few days. -Patient counseled on abstaining from recreational drugs and marijuana and alcohol. Was informed/educated on the adverse effects on their physical and mental health. -Patient was instructed to return to the hospital or seek immediate medical care if their psychiatric or medical systems do worsen or reoccur. Allergies Allergy/AdvReac Type Severity Reaction Status Date / Time iodine Allergy Unknown Verified 12/02/18 10:33 latex Allergy Unknown Verified 12/02/18 10:33 minocycline Allergy Unknown Verified 12/02/18 10:33 polymyxin B [From Polytrim] Allergy Unknown Verified 12/02/18 10:33 shellfish derived [Shellfish] Allergy Unknown Verified 12/02/18 10:33 [place] Seed Allergy Unknown Verified 12/02/18 10:33 trimethoprim [From Polytrim] Allergy Unknown Verified 12/02/18 10:33 Laboratory Results WBC 10.0 k/uL (3.8-10.6) 12/03/18 09:25 RBC 4.38 m/uL (3.80-5.40) 12/03/18 09:25 Hgb 13.2 gm/dL (11.4-16.0) 12/03/18 09:25 Hct 39.4 % (34.0-46.0) 12/03/18 09:25 MCV 89.9 fL (80.0-100.0) 12/03/18 09:25 MCH 30.3 pg (25.0-35.0) 12/03/18 09:25 MCHC 33.7 g/dL (31.0-37.0) 12/03/18 09:25 RDW 13.7 % (11.5-15.5) 12/03/18 09:25 Plt Count 197 k/uL (150-450) 12/03/18 09:25 Neutrophils % 83 % 12/03/18 09:25 Lymphocytes % 6 % 12/03/18 09:25 Monocytes % 9 % 12/03/18 09:25 Eosinophils % 0 % 12/03/18 09:25 Basophils % 0 % 12/03/18 09:25 Neutrophils # 8.2 k/uL (1.3-7.7) H 12/03/18 09:25 Lymphocytes # 0.6 k/uL (1.0-4.8) L 12/03/18 09:25 Monocytes # 0.9 k/uL (0-1.0) 12/03/18 09:25 Eosinophils # 0.0 k/uL (0-0.7) 12/03/18 09:25 Basophils # 0.0 k/uL (0-0.2) 12/03/18 09:25 Sodium 137 mmol/L (137-145) 12/03/18 09:25 Potassium 3.9 mmol/L (3.5-5.1) 12/03/18 09:25 Chloride 102 mmol/L (98-107) 12/03/18 09:25 Carbon Dioxide 27 mmol/L (22-30) 12/03/18 09:25 Anion Gap 8 mmol/L 12/03/18 09:25 BUN 5 mg/dL (7-17) L 12/03/18 09:25 Creatinine 0.61 mg/dL (0.52-1.04) 12/03/18 09:25 Est GFR (CKD-EPI)AfAm >90 (>60 ml/min/1.73 sqM) 12/03/18 09:25 Est GFR (CKD-EPI)NonAf >90 (>60 ml/min/1.73 sqM) 12/03/18 09:25 Glucose 113 mg/dL (74-99) H 12/03/18 09:25 POC Glucose (mg/dL) 108 mg/dL (75-99) H 12/03/18 10:29 POC Glu Trimming Caser DARYL Patricia Jimenez 12/03/18 10:[address] Glu mg/dL 103 12/03/18 09:25 Hemoglobin A1c 5.2 % (4.0-6.0) 12/03/18 09:25 Calcium 9.3 mg/dL (8.4-10.2) 12/03/18 09:25 Total Bilirubin 1.2 mg/dL (0.2-1.3) 12/03/18 09:25 AST 45 U/L (14-36) H 12/03/18 09:25 ALT 35 U/L (9-52) 12/03/18 09:25 Alkaline Phosphatase 38 U/L (38-126) 12/03/18 09:25 Total Protein 6.7 g/dL (6.3-8.2) 12/03/18 09:25 Albumin 4.2 g/dL (3.5-5.0) 12/03/18 09:25 Triglycerides 51 mg/dL (<150) 12/03/18 09:25 Cholesterol 140 mg/dL (<200) 12/03/18 09:25 LDL Cholesterol, Calc 77 mg/dL (0-99) 12/03/18 09:25 HDL Cholesterol 53 mg/dL (40-60) 12/03/18 09:25 TSH 2.000 mIU/L (0.465-4.680) 12/13/18 16:11 Free T4 1.43 ng/dL (0.78-2.19) 12/13/18 16:11 Free T3 pg/mL 3.7 pg/ml (2.8-5.3) 12/13/18 16:11 Urine Color Light Yellow 12/03/18 17:10 Urine Appearance Clear (Clear) 12/03/18 17:10 Urine pH 6.5 (5.0-8.0) 12/03/18 17:10 Ur Specific [place] 1.003 (1.001-1.035) 12/03/18 17:10 Urine Protein Negative (Negative) 12/03/18 17:10 Urine Glucose (UA) Negative (Negative) 12/03/18 17:10 Urine Ketones Negative (Negative) 12/03/18 17:10 Urine Blood Trace (Negative) H 12/03/18 17:10 Urine Nitrite Negative (Negative) 12/03/18 17:10 Urine Bilirubin Negative (Negative) 12/03/18 17:10 Urine Urobilinogen <2.0 mg/dL (<2.0) 12/03/18 17:10 Ur Leukocyte Esterase Negative (Negative) 12/03/18 17:10 Urine RBC 1 /hpf (0-5) 12/03/18 17:10 Urine WBC <1 /hpf (0-5) 12/03/18 17:10 Ur Squamous Epith Cells <1 /hpf (0-4) 12/02/18 11:52 Urine Bacteria Rare /hpf (None) H 12/03/18 17:10 Urine Mucus Rare /hpf (None) H 12/03/18 17:10 Urine HCG, Qual Not Detected (Not Detectd) 12/02/18 12:00 Urine Opiates Screen Negative ng/mL (Negative) 12/03/18 17:10 Ur Oxycodone Screen Not Detected (NotDetected) 12/02/18 11:52 Urine Methadone Screen Negative ng/mL (Negative) 12/03/18 17:10 Ur Propoxyphene Screen Negative ng/mL (Negative) 12/03/18 17:10 Ur Barbiturates Screen Not Detected (NotDetected) 12/02/18 11:52 Urine Barbiturates Negative ng/mL (Negative) 12/03/18 17:10 U Tricyclic Antidepress Not Detected (NotDetected) 12/02/18 11:52 Ur Phencyclidine Scrn Negative ng/mL (Negative) 12/03/18 17:10 Ur Amphetamine Screen Negative ng/mL (Negative) 12/03/18 17:10 Ur Amphetamines Screen Not Detected (NotDetected) 12/02/18 11:52 U Methamphetamines Scrn Not Detected (NotDetected) 12/02/18 11:52 U Benzodiazepines Scrn Negative ng/mL (Negative) 12/03/18 17:10 Urine Cocaine Screen Negative ng/mL (Negative) 12/03/18 17:10 U Cannabinoids Screen Negative ng/mL (Negative) 12/03/18 17:10 U Marijuana (THC) Screen Not Detected (NotDetected) 12/02/18 11:52 Urine Alcohol Negative mg/dL (Negative) 12/03/18 17:10 Vital Signs Temp 97.5 F L 01/22/19 06:30 Pulse 101 H 01/22/19 06:30 Resp 16 01/22/19 06:30 BP 114/71 01/22/19 06:30 Pulse Ox 100 12/30/18 14:20 Patient Condition at Discharge: Stable Plan - Discharge Summary New Discharge Prescriptions: New Loratadine [Claritin] 10 mg PO DAILY #28 tab Acetaminophen Tab [Tylenol] 650 mg PO Q6HR PRN #28 tab PRN Reason: Pain/Discomfort Discontinued Loratadine [Claritin] 10 mg PO DAILY Ibuprofen [Advil] 200 mg PO DAILY PRN PRN Reason: PAIN/FEVER Acetaminophen Tab [Tylenol] 500 mg PO DAILY Discharge Medication List Acetaminophen Tab [Tylenol] 650 mg PO Q6HR PRN #28 tab 01/22/19 [Rx] Loratadine [Claritin] 10 mg PO DAILY #28 tab 01/22/19 [Rx] Follow up Appointment(s)/Referral(s): Miriam Esquivel MD [Primary Care Provider] - 1-2 days Activity/Diet/Wound Care/Special Instructions: Activity and diet as tolerated. No guns or weapons in the home. Refrain from any alcohol and drugs not prescribed by physician. Please take all medications as prescribed, and attend all after care appointments as scheduled. If in need of medication refills, please go to your primary care physician, or your out patient psychiatric provider. If in crisis, please go the nearest ER for evaluation, or call the crisis line at [phone]. Discharge Disposition: HOME SELF-CARE
== END 2019-01-22 14:45 | disposition home or self-care (01) | DRG 885 ==
LOC: EC 09:42 → 3MHU 15:28
PROVIDERS: ADMIT Psychiatry & Neurology Psychiatry; ATTEND Psychiatry & Neurology Psychiatry
DX: F20.9 Schizophrenia, unspecified (principal); G21.19 Other drug induced secondary parkinsonism; E06.9 Thyroiditis, unspecified; E16.2 Hypoglycemia, unspecified; F30.9 Manic episode, unspecified; F41.9 Anxiety disorder, unspecified; F60.0 Paranoid personality disorder; T43.4X5A Adverse effect of butyrophenone and thiothixene neuroleptics, initial encounter; Y92.239 Unspecified place in hospital as the place of occurrence of the external cause; Y92.008 Other place in unspecified non-institutional (private) residence as the place of occurrence of the external cause; W13.4XXA Fall from, out of or through window, initial encounter; Y93.39 Activity, other involving climbing, rappelling and jumping off; Z59.2 Discord with neighbors, lodgers and landlord; Z79.899 Other long term (current) drug therapy; Z91.14 Patient's other noncompliance with medication regimen; Z91.83 Wandering in diseases classified elsewhere; Z71.89 Other specified counseling; S80.02XA Contusion of left knee, initial encounter; S80.01XA Contusion of right knee, initial encounter; S60.00XA Contusion of unspecified finger without damage to nail, initial encounter; S90.32XA Contusion of left foot, initial encounter; S90.02XA Contusion of left ankle, initial encounter; M25.551 Pain in right hip; J45.990 Exercise induced bronchospasm; R45.1 Restlessness and agitation; Z88.8 Allergy status to other drugs, medicaments and biological substances; Z91.040 Latex allergy status; Z91.013 Allergy to seafood; L70.9 Acne, unspecified
CPT/HCPCS: 70450; 72100; 72125; 72170; 80053; 80061; 80306; 81001; 81025; 83036; 84439; 84443; 84481; 85025; 93005; 96372; 99285

== ENCOUNTER 2021-10-21 17:54 | Emergency (ER) | payer OTHER ==
[2021-10-21 20:20] VITALS: BP 123/87; PULSE 101; RESP 18; TEMP 98.6
--- NOTE | 2021-10-21 21:42 | ED ---
General Adult HPI - General Source: patient Mode of arrival: EMS Limitations: no limitations <Sharon Bahena P - Last Filed: 10/22/21 00:28> <Doc Parker - Last Filed: 10/27/21 21:44> - General Chief complaint: Recheck/Abnormal Lab/Rx Stated complaint: mental health Time Seen by Provider: 10/21/21 21:24 - History of Present Illness Initial comments: Sari is a 36-year-old female with a history of schizophrenia and episodes of psychosis. She is brought to the ER today by her mother for evaluation of bizarre behaviors. Mom reports that 2 days ago she threw with the intent of the television but wouldn't explain why. Yesterday she was walking around holding a painting that she made of herself in a lawn muscular she previously believe that she was leaning 2 through a neuro network and was to. Mom states that today she took her to [place] to her grandfather's cabin because she felt some good memories would be good for her however the patient laid in the water at the beach for 6-7 hours she refused to leave the beach she was throwing sand on herself. She would not come to the house to eat or drink. When mom tried to get her she tried to run someone called 911 to assist in her history. Upon arrival patient reports her mom does have not been communicating well, she states that she threw away the antenna because she read that and tenderness without came to our legal and she didn't want her parents to be stealing her get in trouble. She also states that she was just reminiscing about her previous thoughts during her previous episode of psychosis in which she was in love with a lawn muscular, she states that she knows of does not reveal he states she no she was never to him but she does think she made a very good painting was admiring it. He states that today she just slumped being in the water and and on come to the house. She does state that she no she needs focus more on self-care like eating and drinking not staying in the water for multiple hours. He does follow with [facility], she has an appointment with Saulo tomorrow and with any K in 2 weeks. Patient reports that she has had multiple medications in the past with side effects, she is currently transitioning from one medication to another and states that it's going slowly but she does feel working. (Sharon Bahena) - Related Data Home Medications Medication Instructions Recorded Confirmed ARIPiprazole [Abilify Maintena] 400 mg IM Q21D 10/21/21 10/21/21 OLANZapine [ZyPREXA] 5 mg PO HS 10/21/21 10/21/21 Propranolol [Inderal] 20 mg PO BID 10/21/21 10/21/21 QUEtiapine [SEROquel] 300 mg PO HS 10/21/21 10/21/21 lamoTRIgine [LaMICtal] 100 mg PO HS 10/21/21 10/21/21 Allergies Allergy/AdvReac Type Severity Reaction Status Date / Time fluphenazine [From Prolixin] Allergy Unknown Verified 10/21/21 22:28 haloperidol [From Haldol] Allergy Unknown Verified 10/21/21 22:28 iodine Allergy Unknown Verified 10/21/21 22:28 latex Allergy Unknown Verified 10/21/21 22:28 minocycline Allergy Unknown Verified 10/21/21 22:28 olanzapine [From Zyprexa] Allergy Unknown Verified 10/21/21 22:28 paliperidone [From Invega] Allergy Unknown Verified 10/21/21 22:28 shellfish derived [Shellfish] Allergy Unknown Verified 10/21/21 22:28 [place] Seed Allergy Unknown Verified 10/21/21 22:28 ziprasidone [From Geodon] Allergy Unknown Verified 10/21/21 22:28 polymixin B Allergy Unknown Uncoded 10/21/21 22:28 Review of Systems ROS Other: All systems not noted in ROS Statement are negative. <Sharon Bahena - Last Filed: 10/22/21 00:28> ROS Other: All systems not noted in ROS Statement are negative. <Doc Parker - Last Filed: 10/27/21 21:44> ROS Statement: Those systems with pertinent positive or pertinent negative responses have been documented in the HPI. Past Medical History Past Medical History: No Reported History History of Any Multi-Drug Resistant Organisms: None Reported Past Surgical History: Orthopedic Surgery Smoking Status: Never smoker Past Alcohol Use History: None Reported Past Drug Use History: None Reported <Sharon Bahena - Last Filed: 10/22/21 00:28> General Exam Limitations: no limitations <Sharon Bahena - Last Filed: 10/22/21 00:28> - General Exam Comments Initial Comments: Physical Exam GENERAL: Patient is well-developed and well-nourished. Patient is nontoxic is in no distress. HENT: Normocephalic, Atraumatic. EYES: PERRL, EOMI PULMONARY: Unlabored respirations. CARDIOVASCULAR: RRR Warm and well perfused extremities ABDOMEN: Non-distended SKIN: Superficial sunburn on face, no blisters : Deferred NEUROLOGIC: Alert and oriented Normal speech Normal gait MUSCULOSKELETAL: Moving all extremities with no apparent injury PSYCHIATRIC: SR, does not make eye contact but has good insight, no suicidal or homicidal ideation (Sharon Bahena) Course <Doc Parker - Last Filed: 10/27/21 21:44> Vital Signs 10/21/21 20:12 Temperature 98.6 F Pulse Rate 101 H Respiratory 18 Rate Blood Pressure 123/87 O2 Sat by Pulse 100 Oximetry - Reevaluation(s) Reevaluation #1: medically clear for psychiatric evaluation (Doc Parker) Medical Decision Making - Lab Data Result diagrams: 10/21/21 21:49 10/21/21 21:49 <Sharon Bahena - Last Filed: 10/22/21 00:28> - Lab Data Result diagrams: 10/21/21 21:49 10/21/21 21:49 <Doc Parker - Last Filed: 10/27/21 21:44> - Medical Decision Making Pt seen, medically cleared for EPS evaluation Patient signed out to Dr Parker pending EPS recommendations (Sharon Bahena) 36 female seen and evaluated by psychiatry, patient is stable and safe for discharge (Doc Parker) - Lab Data Lab Results 10/21/21 10/21/21 10/21/21 Range/Units 21:49 21:49 21:49 WBC 14.4 H (3.8-10.6) k/uL RBC 4.53 (3.80-5.40) m/uL Hgb 13.9 (11.4-16.0) gm/dL Hct 41.6 (34.0-46.0) % MCV 91.9 (80.0-100.0) fL MCH 30.7 (25.0-35.0) pg MCHC 33.4 (31.0-37.0) g/dL RDW 12.1 (11.5-15.5) % Plt Count 205 (150-450) k/uL MPV 7.9 Neutrophils % 81 % Lymphocytes % 11 % Monocytes % 6 % Eosinophils % 0 % Basophils % 1 % Neutrophils # 11.6 H (1.3-7.7) k/uL Lymphocytes # 1.6 (1.0-4.8) k/uL Monocytes # 0.8 (0-1.0) k/uL Eosinophils # 0.1 (0-0.7) k/uL Basophils # 0.1 (0-0.2) k/uL Sodium (137-145) mmol/L Potassium (3.5-5.1) mmol/L Chloride (98-107) mmol/L Carbon Dioxide (22-30) mmol/L Anion Gap mmol/L BUN (7-17) mg/dL Creatinine (0.52-1.04) mg/dL Est GFR (CKD-EPI)AfAm (>60 ml/min/1.73 sqM) Est GFR (CKD-EPI)NonAf (>60 ml/min/1.73 sqM) Glucose (74-99) mg/dL Calcium (8.4-10.2) mg/dL Total Bilirubin (0.2-1.3) mg/dL AST (14-36) U/L ALT (4-34) U/L Alkaline Phosphatase (38-126) U/L Total Protein (6.3-8.2) g/dL Albumin (3.5-5.0) g/dL Urine Color Yellow Urine Appearance Clear (Clear) Urine pH 5.5 (5.0-8.0) Ur Specific [place] 1.010 (1.001-1.035) Urine Protein Trace H (Negative) Urine Glucose (UA) Negative (Negative) Urine Ketones 1+ H (Negative) Urine Blood Negative (Negative) Urine Nitrite Negative (Negative) Urine Bilirubin Negative (Negative) Urine Urobilinogen <2.0 (<2.0) mg/dL Ur Leukocyte Esterase Negative (Negative) Urine HCG, Qual Not Detected (Not Detectd) Salicylates mg/dL Urine Opiates Screen Not Detected (NotDetected) Ur Oxycodone Screen Not Detected (NotDetected) Urine Methadone Screen Not Detected (NotDetected) Ur Propoxyphene Screen Not Detected (NotDetected) Acetaminophen ug/mL Ur Barbiturates Screen Not Detected (NotDetected) U Tricyclic Antidepress Not Detected (NotDetected) Ur Phencyclidine Scrn Not Detected (NotDetected) Ur Amphetamines Screen Not Detected (NotDetected) U Methamphetamines Scrn Not Detected (NotDetected) U Benzodiazepines Scrn Not Detected (NotDetected) Urine Cocaine Screen Not Detected (NotDetected) U Marijuana (THC) Screen Not Detected (NotDetected) Serum Alcohol mg/dL 10/21/21 Range/Units 21:49 WBC (3.8-10.6) k/uL RBC (3.80-5.40) m/uL Hgb (11.4-16.0) gm/dL Hct (34.0-46.0) % MCV (80.0-100.0) fL MCH (25.0-35.0) pg MCHC (31.0-37.0) g/dL RDW (11.5-15.5) % Plt Count (150-450) k/uL MPV Neutrophils % % Lymphocytes % % Monocytes % % Eosinophils % % Basophils % % Neutrophils # (1.3-7.7) k/uL Lymphocytes # (1.0-4.8) k/uL Monocytes # (0-1.0) k/uL Eosinophils # (0-0.7) k/uL Basophils # (0-0.2) k/uL Sodium 138 (137-145) mmol/L Potassium 3.9 (3.5-5.1) mmol/L Chloride 105 (98-107) mmol/L Carbon Dioxide 20 L (22-30) mmol/L Anion Gap 13 mmol/L BUN 8 (7-17) mg/dL Creatinine 0.79 (0.52-1.04) mg/dL Est GFR (CKD-EPI)AfAm >90 (>60 ml/min/1.73 sqM) Est GFR (CKD-EPI)NonAf >90 (>60 ml/min/1.73 sqM) Glucose 103 H (74-99) mg/dL Calcium 9.7 (8.4-10.2) mg/dL Total Bilirubin 1.6 H (0.2-1.3) mg/dL AST 21 (14-36) U/L ALT 13 (4-34) U/L Alkaline Phosphatase 53 (38-126) U/L Total Protein 7.7 (6.3-8.2) g/dL Albumin 5.2 H (3.5-5.0) g/dL Urine Color Urine Appearance (Clear) Urine pH (5.0-8.0) Ur Specific [place] (1.001-1.035) Urine Protein (Negative) Urine Glucose (UA) (Negative) Urine Ketones (Negative) Urine Blood (Negative) Urine Nitrite (Negative) Urine Bilirubin (Negative) Urine Urobilinogen (<2.0) mg/dL Ur Leukocyte Esterase (Negative) Urine HCG, Qual (Not Detectd) Salicylates <1.0 mg/dL Urine Opiates Screen (NotDetected) Ur Oxycodone Screen (NotDetected) Urine Methadone Screen (NotDetected) Ur Propoxyphene Screen (NotDetected) Acetaminophen <10.0 ug/mL Ur Barbiturates Screen (NotDetected) U Tricyclic Antidepress (NotDetected) Ur Phencyclidine Scrn (NotDetected) Ur Amphetamines Screen (NotDetected) U Methamphetamines Scrn (NotDetected) U Benzodiazepines Scrn (NotDetected) Urine Cocaine Screen (NotDetected) U Marijuana (THC) Screen (NotDetected) Serum Alcohol <10 mg/dL Disposition <Sharon Bahena P - Last Filed: 10/22/21 00:28> Is patient prescribed a controlled substance at d/c from ED?: No <Doc Parker - Last Filed: 10/27/21 21:44> Clinical Impression: Schizophrenia, Acute psychosis, Paranoid Disposition: HOME SELF-CARE Condition: Fair Instructions (If sedation given, give patient instructions): Brief Psychotic Disorder (ED) Referrals: None,Stated [Primary Care Provider] - 1-2 days
[2021-10-21 22:14] LABS: Basophils # (A) 0.1 k/uL (0-0.2); Basophils % (A) 1 %; Eosinophils # (A) 0.1 k/uL (0-0.7); Eosinophils % (A) 0 %; HCT 41.6 % (34.0-46.0); HGB 13.9 gm/dL (11.4-16.0); Lymphocytes # (A) 1.6 k/uL (1.0-4.8); Lymphocytes % (A) 11 %; MCH 30.7 pg (25.0-35.0); MCHC 33.4 g/dL (31.0-37.0); MCV 91.9 fL (80.0-100.0); Mean Platelet Volume 7.9; Monocytes # (A) 0.8 k/uL (0-1.0); Monocytes % (A) 6 %; Neutrophils # (A) 11.6 k/uL (1.3-7.7); Neutrophils % (A) 81 %; Platelet Count 205 k/uL (150-450); RBC 4.53 m/uL (3.80-5.40); RDW 12.1 % (11.5-15.5); WBC 14.4 k/uL (3.8-10.6)
[2021-10-21 22:21] LABS: Appearance,Urine Clear (Clear); Bilirubin,Urine Negative (Negative); Blood,Urine Negative (Negative); Color,Urine Yellow; Glucose,Urine (UA) Negative (Negative); Ketones,Urine 1+ (Negative); Leukocyte Esterase,Urine Negative (Negative); Nitrite,Urine Negative (Negative); PH, Urine 5.5 (5.0-8.0); Protein,Urine Trace (Negative); Urobilinogen,Urine <2.0 mg/dL (<2.0)
[2021-10-21 22:27] LABS: ALT 13 U/L (4-34); AST 21 U/L (14-36); Acetaminophen <10.0 ug/mL; African American GFR (CKD) >90 (>60 ml/min/1.73 sqM); Albumin 5.2 g/dL (3.5-5.0); Alcohol <10 mg/dL; Alkaline Phosphatase 53 U/L (38-126); Anion Gap 13 mmol/L; Blood Urea Nitrogen 8 mg/dL (7-17); Calcium 9.7 mg/dL (8.4-10.2); Carbon Dioxide 20 mmol/L (22-30); Chloride 105 mmol/L (98-107); Glucose 103 mg/dL (74-99); Non-African American GFR(CKD) >90 (>60 ml/min/1.73 sqM); Potassium 3.9 mmol/L (3.5-5.1); Salicylate <1.0 mg/dL; Sodium 138 mmol/L (137-145); Total Bilirubin 1.6 mg/dL (0.2-1.3); Total Protein 7.7 g/dL (6.3-8.2)
[2021-10-21 22:30] LABS: Amphetamine Screen,Urine Not Detected (NotDetected); Barbiturate Screen,Urine Not Detected (NotDetected); Benzodiazepines Screen,Urine Not Detected (NotDetected); Cocaine Screen,Urine Not Detected (NotDetected); Methadone Screen, Urine Not Detected (NotDetected); Opiate Screen,Urine Not Detected (NotDetected); Oxycodone Screen, Urine Not Detected (NotDetected); Phencyclidine Screen,Urine Not Detected (NotDetected); Tricyclic Antidepressant,Urine Not Detected (NotDetected); Urn Cannabinoid Scrn Not Detected (NotDetected)
== END 2021-10-22 07:00 | disposition home or self-care (01) ==
LOC: EC 17:54 → EEVIPCON 17:54 → EC 10-22 07:00
DX: F23 Brief psychotic disorder (principal); F60.0 Paranoid personality disorder; Z91.040 Latex allergy status; Z88.5 Allergy status to narcotic agent; Z88.8 Allergy status to other drugs, medicaments and biological substances; Z91.013 Allergy to seafood; Z91.018 Allergy to other foods
CPT/HCPCS: 36415; 80053; 85025; 81003; 81025; 80306; 80143; 80179; 99284; G0480; 80320